=== PATIENT | male | born 1960 | race Caucasian/White ===

== ENCOUNTER 2016-11-11 11:24 | Observation (INO) | payer OTHER ==
[2016-11-11] MEDS ORDERED: ASPIRIN 81 MG CHEW PO STA (11:34)
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
[2016-11-11 12:04] LABS: Partial Thromboplastin Time 24.6 sec (22.0-30.0)
[2016-11-11 12:07] LABS: Basophils # (A) 0.1 k/uL (0-0.2); Basophils % (A) 1 %; CH 30.3; CHCM 33.8; Eosinophils # (A) 0.5 k/uL (0-0.7); Eosinophils % (A) 8 %; HCT 37.7 % (39.0-53.0); HGB 12.4 gm/dL (13.0-17.5); Luc # (Auto) 0.25; Luc % (Auto) 4; Lymphocytes # (A) 1.8 k/uL (1.0-4.8); Lymphocytes % (A) 27 %; MCH 29.7 pg (25.0-35.0); Mean Platelet Volume 6.5; Monocytes # (A) 0.4 k/uL (0-1.0); Monocytes % (A) 6 %; Neutrophils # (A) 3.8 k/uL (1.3-7.7); Neutrophils % (A) 55 %; RBC 4.19 m/uL (4.30-5.90); RDW 14.7 % (11.5-15.5); WBC 6.8 k/uL (3.8-10.6); WBC (Perox) 6.83
[2016-11-11 12:08] LABS: ALT 34 U/L (21-72); AST 31 U/L (17-59); Alkaline Phosphatase 75 U/L (38-126); Anion Gap 10 mmol/L; Blood Urea Nitrogen 11 mg/dL (9-20); Calcium 9.3 mg/dL (8.4-10.2); Carbon Dioxide 25 mmol/L (22-30); Chloride 105 mmol/L (98-107); Glucose 98 mg/dL (74-99); Magnesium 1.8 mg/dL (1.6-2.3); Non-African American GFR(MDRD) >60 (>60 ml/min/1.73 sqM); Potassium 4.5 mmol/L (3.5-5.1); Sodium 140 mmol/L (137-145); Total Bilirubin 0.5 mg/dL (0.2-1.3); Total Protein 6.6 g/dL (6.3-8.2)
--- NOTE | 2016-11-11 13:07 | XR ---
EXAMINATION TYPE: XR chest 2V DATE OF EXAM: 11/11/2016 11:59 AM COMPARISON: 09/22/2016 HISTORY: Shortness of breath TECHNIQUE: Frontal and lateral views of the chest are obtained. FINDINGS: Scattered senescent parenchymal changes noted. Hyperinflation compatible with COPD. No evidence for infiltrate. No evidence for atelectasis. Heart size is stable. Mediastinal structures are stable and grossly unremarkable. No evidence for hilar prominence. Degenerative changes dorsal spine. IMPRESSION: 1. No evidence for acute pulmonary disease.
[2016-11-11] MEDS ORDERED: MORPHINE SULFATE 4 MG/ML SYRINGE IV PRN (13:23)
[2016-11-11] MEDS ORDERED: NALOXONE 0.4 MG/ML 1 ML VIAL IV PRN (13:23)
[2016-11-11] MEDS ORDERED: ONDANSETRON 4 MG/2 ML VIAL IVP PRN (13:23)
[2016-11-11] MEDS ORDERED: ALBUTEROL NEBULIZED 2.5 MG/3 ML INHALATION PRN (13:25)
[2016-11-11] MEDS ORDERED: HEPARIN SODIUM,PORCINE/D5W PMX 25,000 UNIT in DEXTROSE/WATER 1 500ML.BAG IV SCH (15:15)
[2016-11-11] MEDS ORDERED: NITROGLYCERIN SL TABS 0.4 MG TAB SUBLINGUAL PRN (17:26)
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
[2016-11-11] MEDS: IPRATROPIUM-ALBUTEROL 3 ML NEB INHALATION SCH (19:42)
[2016-11-11] MEDS ORDERED: ATORVASTATIN 20 MG TAB PO SCH (21:00)
[2016-11-11] MEDS: GABAPENTIN 300 MG CAP PO SCH (21:08)
[2016-11-11] MEDS: METOPROLOL TARTRATE 25 MG TAB PO SCH (21:08)
[2016-11-11] MEDS: PANTOPRAZOLE 40 MG TABLET PO SCH (21:09)
[2016-11-11] MEDS: LISINOPRIL 10 MG TAB PO SCH (21:09)
[2016-11-11] MEDS: FAMOTIDINE 20 MG TAB PO SCH (21:09)
[2016-11-12] MEDS ORDERED: LEVOTHYROXINE 75 MCG TAB PO SCH (06:30)
[2016-11-12] MEDS ORDERED: ASPIRIN 325 MG TAB PO SCH (09:00)
[2016-11-12] MEDS ORDERED: CITALOPRAM HYDROBROMIDE 20 MG TAB PO SCH (09:00)
[2016-11-12] MEDS: IPRATROPIUM-ALBUTEROL 3 ML NEB INHALATION SCH ×4 (09:22→19:43)
[2016-11-12] MEDS ORDERED: AMINOPHYLLINE 500 MG/20 ML VIAL IV PRN (10:09)
[2016-11-12] MEDS ORDERED: REGADENOSON 0.4 MG/5 ML SYRINGE IV ONE (10:09)
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
[2016-11-12] MEDS: FAMOTIDINE 20 MG TAB PO SCH (13:11)
[2016-11-12] MEDS: PANTOPRAZOLE 40 MG TABLET PO SCH (13:11)
[2016-11-12] MEDS: METOPROLOL TARTRATE 25 MG TAB PO SCH (13:11)
[2016-11-12] MEDS: LISINOPRIL 10 MG TAB PO SCH (13:11)
[2016-11-12] MEDS: GABAPENTIN 300 MG CAP PO SCH (13:11)
--- NOTE | 2016-11-12 13:45 | P.DS ---
Providers Date of admission: 11/11/16 13:23 Attending physician: Aries Ahn Primary care physician: Aries Ahn Discharge summary on 11/12/[address] Francisco Joel [facility]. Final diagnosis: #1 chest pain with the behavioral to left arm with the underlying history of 2 stent considered as unstable angina. #2 patient underwent stress exercise Lexiscan result is pending. #3 COPD chronic bronchitis history of smoking, cessation was of smoking advised, patient currently persistent to smoke and he will not quit at this point. #4 stable troponin and EKG no changes. Hospital course: Patient admitted on observation status because of the chest pain with the repeat cardiac enzyme and EKG, with the consultation with the cardiology Dr. Angelo as well has heparin infusion. His chest pain has been resolved, he is ambulatory, underwent the stress test however farther x-rays will be done. If the results of the test is negative after reviewed by the cardiology patient will be discharged home to follow up with his rail bonder Dr. Clarke. [id number] examination: Patient's conscious alert oriented 3 morning 4 extremities he was eating lunch. HEENT negative except of his left eye prosthesis oropharynx was negative no neck pain or referred pain Chest is clear no rhonchi's no wheezes after he has been used the inhalation therapy with the DuoNeb he has COPD resolved his rhonchi's and the wheezes. Heart regular sinus rhythm no evidence of decompensation. Abdomen soft positive bowel sounds no organ enlargement. Extremities no edema positive pulses bilateral and symmetrical. Neurologically: Stable ambulatory voiding 4 extremities no lateralizing sign. Patient stable general condition. Vital signs stable as well Waiting for the evaluation of the stress test by the rail bonder and patient is free of pain and some sequently will be discharged home. Follow-up with Dr. Ahn 3-5 days. Follow-up with Dr. Clarke and next week. Diet cardiac Activity as tolerated. Advised to stop smoking strongly. Patient Condition at Discharge: Fair Plan - Discharge Summary Discharge Medication List Albuterol Inhaler [Ventolin Hfa Inhaler] 2 puff INHALATION RT-BID PRN 10/01/14 [ History] Citalopram Hydrobromide [CeleXA] 40 mg PO DAILY 10/01/14 [History] Lisinopril [Zestril] 10 mg PO BID 10/01/14 [History] Metoprolol Tartrate [Lopressor] 25 mg PO BID 10/01/14 [History] Nitroglycerin Sl Tabs [Nitrostat] 0.4 mg SUBLINGUAL Q5M PRN 10/01/14 [History] Omeprazole [PriLOSEC] 20 mg PO BID 10/01/14 [History] Simvastatin [Zocor] 40 mg PO HS 10/01/14 [History] Gabapentin [Neurontin] 300 mg PO BID 05/25/15 [History] Aspirin 325 mg PO DAILY 03/20/16 [History] Levothyroxine Sodium [Synthroid] 75 mcg PO DAILY 11/11/16 [History] Metoclopramide [Reglan] 5 mg PO TID 11/11/16 [History] Follow up Appointment(s)/Referral(s): Aries Ahn MD [Primary Care Provider] - 1-2 days
--- NOTE | 2016-11-12 13:52 | ECHOS ---
DATE OF SERVICE: 11/12/16 AGE: 56Y SEX: M HT: 72" WT: 180 lbs. Protocol Marvin: Others: Stage: Dur. of Exercise: *Heart Rate Blood Pressure *Rest: 62 Rest: 126/70 * *Max. Achieved: 92 Maximum BP: 133/86 85% PMHR: 138 100% PMHR: 162 *METS: INDICATIONS: Chest pain. MEDICATIONS: See list. CLINICAL INFORMATION: History of chest pain, hypertension, and TIA, family history of coronary artery disease, palpitations, history of smoking half pack of cigarettes a day for over 45 years. Resting ECG shows sinus rhythm, rate of 62 beats per minute, ( ) 0.16, QRS 0.08, normal ST-T waves. Utilizing a standard Lexiscan protocol, Lexiscan was given IV push followed by serial EKGs. The patient did not develop any chest pain or pressure or ST segment deviations indicative of ischemia in any of the monitoring 12 leads. Patient tolerated the procedure very well. IMPRESSION: 1. Baseline rhythm is sinus with normal ( ). Normal ST-T waves. 2. Negative Lexiscan Cardiolite study. 3. Nuclear scintigrams to follow from radiology department.
--- NOTE | 2016-11-12 15:16 | NM ---
EXAMINATION TYPE: NM stress lexiscan cardiolite DATE OF EXAM: 11/12/2016 3:02 PM COMPARISON: Chest x-ray October HISTORY: Chest pain TECHNIQUE: After the intravenous administration of 10.36 mCi Tc 99m Sestamibi - Cardiolite resting S PECT images acquired 30 minutes post injection. The patient received 0.4mg Lexiscan, 27.3 mCi Tc 99m Sestamibi - Stress images obtained 100 minutes p ost injection FINDINGS: Review of stress and rest SPECT images demonstrates decreased perfusion along the inferior wall the l eft ventricular myocardium on stress and rest images. Gated analysis shows normal wall motion with an estimated left ventricular ejection fraction of 43 %. No evident pharmacologically induced reversibl e ischemia. IMPRESSION: No scintigraphic evidence for reversible ischemia. Findings may represent previous infarct along the inferior wall of the left vertebral myocardium.
[2016-11-12 15:51] VITALS: BP 128/78; RESP 16; TEMP 97.8
[2016-11-12 16:11] VITALS: PULSE 60
== END 2016-11-12 19:15 | disposition home or self-care (01) ==
LOC: EC 11:24 → 3OBS 13:23
PROVIDERS: ADMIT Internal Medicine; ATTEND Internal Medicine
DX: R07.89 Other chest pain (principal); J44.9 Chronic obstructive pulmonary disease, unspecified; F17.200 Nicotine dependence, unspecified, uncomplicated; E03.9 Hypothyroidism, unspecified; I25.10 Atherosclerotic heart disease of native coronary artery without angina pectoris; K21.9 Gastro-esophageal reflux disease without esophagitis; E55.9 Vitamin D deficiency, unspecified; E78.5 Hyperlipidemia, unspecified; J45.909 Unspecified asthma, uncomplicated; I50.9 Heart failure, unspecified; I10 Essential (primary) hypertension; M54.9 Dorsalgia, unspecified; I25.2 Old myocardial infarction; M19.90 Unspecified osteoarthritis, unspecified site; F41.9 Anxiety disorder, unspecified; F32.9 Major depressive disorder, single episode, unspecified; Z95.5 Presence of coronary angioplasty implant and graft; Z97.0 Presence of artificial eye; Z79.82 Long term (current) use of aspirin; Z88.5 Allergy status to narcotic agent; Z88.8 Allergy status to other drugs, medicaments and biological substances; Z82.49 Family history of ischemic heart disease and other diseases of the circulatory system; Z80.1 Family history of malignant neoplasm of trachea, bronchus and lung
CPT/HCPCS: 36415; 94640 ×3; 93005; 93017; 83880; 80053; 83735; 84484; 85025; 85610; 85730 ×2; 71020; 78452; 99285; 96365; G0378 ×2; A9500; J1644; J2785; 96366

== ENCOUNTER 2016-12-10 09:43 | Day surgery (SDC) | payer OTHER ==
[2016-12-08 08:45] VITALS: BMI 27.1
[~2016-12-10 09:43] MED LIST: ALPRAZolam 0.25 MG TAB PO PRN; ALPRAZolam 0.5 MG TAB PO PRN; ASPIRIN 325 MG TAB PO STA; ATORVASTATIN 80 MG TAB PO STA; NITROGLYCERIN SL TABS 0.4 MG TAB SUBLINGUAL PRN; SODIUM CHLORIDE 0.9% 1,000 ML in EMPTY BAG 1 BAG IV ONE
[2016-12-10 10:12] VITALS: RESP 18
[2016-12-10] MEDS ORDERED: MIDAZOLAM 2 MG/2 ML VIAL IV ONE ×2 (10:45→10:55)
[2016-12-10] MEDS ORDERED: LIDOCAINE 2% INJ 20 MG/ML SQ ONE (10:49)
[2016-12-10] MEDS: VERAPAMIL SYRINGE (5 MG/10 ML) IV ONE ×2 (10:52→11:12)
[2016-12-10] MEDS ORDERED: IOHEXOL 350 MG/ML 100 ML BOTTLE INJ ONE (11:12)
[2016-12-10] MEDS ORDERED: RX INFO: IV CONTRAST WAS GIVEN 1 EACH MISC MISCELLANE PRN (11:19)
[2016-12-10] MEDS ORDERED: SODIUM CHLORIDE 0.9% 1,000 ML IV SCH (11:30)
[2016-12-10 12:04] VITALS: PULSE 52
[2016-12-10 12:59] VITALS: TEMP 98
[2016-12-10] MEDS ORDERED: ACETAMINOPHEN TAB 325 MG TAB PO PRN (13:42)
[2016-12-10 14:45] VITALS: BP 139/94
--- NOTE | 2016-12-10 20:34 | LTR ---
December 10, 2016 RE: Myles Sow Dear Dr. Ahn, Mr. Myles Sow underwent heart catheterization which showed intermediate triple-vessel coronary artery disease. Maximized medical treatment is recommended; no need for stent at this point. Thank you for allowing me to participate in his care. Sincerely, LADONNA MC MD
--- NOTE | 2016-12-10 20:39 | CC ---
DATE OF SERVICE: 12/10/2016 PERFORMING PHYSICIAN: Adrian Gao M.D. cat sitter. PROCEDURE PERFORMED: Selective right and left coronary angiogram. INDICATION FOR STUDY: This is a pleasant 56-year-old gentleman who was experiencing chest discomfort in spite of maximized medical treatment. APPROACH: Right radial artery. COMPLICATIONS: None. LEVEL OF SEDATION: Moderate. PROCEDURE DESCRIPTION: After obtaining informed consent, the patient was brought to the cardiac laborer demolition. The right radial artery was cannulated using micropuncture technique. The micropuncture wire passed easily, then I placed a 6 Dominican sheath in the right radial artery. I performed selective right and left angiogram. After that I gave the patient 2 mg of Verapamil IA and 3000 units of heparin IV. I did selective right and left coronary angiogram using JR4 and JL3.5 catheters. The procedure was completed without any complication. SELECTIVE CORONARY ANGIOGRAM: 1. The right coronary artery is a large-caliber vessel. It is a dominant vessel. The RCA has intermediate disease in the mid portion that appeared to be in the range of 50%. 2. The left main is a short left main but is angiographically normal. It bifurcates into the left circumflex and left anterior descending artery. 3. Left circumflex. The proximal circumflex appeared to have disease in the range of 30%. The mid left circumflex has a lesion that seems to be in the range of 50% by the bifurcation of the first OM branch, which appeared to be angiographically normal. The left circumflex after that appeared to be angiographically normal and gives rises to the second OM branch, which appeared to be angiographically normal. 4. Left anterior descending artery. The proximal LAD appeared to be angiographically normal. The mid LAD by the bifurcation of the first diagonal had a lesion that appeared to be in the range of 30%. The first diagonal appeared to be a small- to medium-caliber vessel with lesion in the proximal portion in the range of 70%. The LAD distally is angiographically normal. CONCLUSION: 1. Intermediate triple-vessel coronary artery disease. 2. Severe disease involving a proximal first diagonal branch which is a small- to medium-caliber vessel which is about a 2 mm vessel. POST-PROCEDURE MANAGEMENT: 1. Maximize medical treatment. 2. Follow up with the patient.
== END 2016-12-10 15:52 | disposition home or self-care (01) ==
LOC: CATHCVL 09:43
PROVIDERS: ATTEND Internal Medicine Interventional Cardiology
DX: I25.110 Atherosclerotic heart disease of native coronary artery with unstable angina pectoris (principal); I10 Essential (primary) hypertension; J44.9 Chronic obstructive pulmonary disease, unspecified; E03.9 Hypothyroidism, unspecified; E78.00 Pure hypercholesterolemia, unspecified; I25.2 Old myocardial infarction; F17.210 Nicotine dependence, cigarettes, uncomplicated; Z88.5 Allergy status to narcotic agent; Z91.041 Radiographic dye allergy status; Z79.82 Long term (current) use of aspirin; Z79.899 Other long term (current) drug therapy; Z95.5 Presence of coronary angioplasty implant and graft; Z82.49 Family history of ischemic heart disease and other diseases of the circulatory system
CPT/HCPCS: 93454; 99152; 99153; C1894; J2001; J2250; Q9967; J1644

== ENCOUNTER → 2017-04-11 | Outpatient (CLI) | payer OTHER ==
[2017-04-11 12:20] LABS: Basophils % (A) 1 %; CHCM 33.3; Eosinophils # (A) 0.4 k/uL (0-0.7); Eosinophils % (A) 6 %; HCT 36.1 % (39.0-53.0); HGB 11.9 gm/dL (13.0-17.5); Luc # (Auto) 0.18; Luc % (Auto) 3; Lymphocytes # (A) 1.5 k/uL (1.0-4.8); Lymphocytes % (A) 25 %; MCH 30.8 pg (25.0-35.0); MCV 93.5 fL (80.0-100.0); Mean Platelet Volume 7.4; Monocytes # (A) 0.4 k/uL (0-1.0); Monocytes % (A) 7 %; Neutrophils # (A) 3.6 k/uL (1.3-7.7); Neutrophils % (A) 59 %; RBC 3.87 m/uL (4.30-5.90); RDW 14.2 % (11.5-15.5); WBC (Perox) 6.16
[2017-04-11 12:58] LABS: Anion Gap 8 mmol/L; Blood Urea Nitrogen 14 mg/dL (9-20); Calcium 9.2 mg/dL (8.4-10.2); Carbon Dioxide 25 mmol/L (22-30); Chloride 105 mmol/L (98-107); Glucose 97 mg/dL (74-99); Non-African American GFR(MDRD) >60 (>60 ml/min/1.73 sqM); Potassium 4.4 mmol/L (3.5-5.1); Sodium 138 mmol/L (137-145); Uric Acid 4.3 mg/dL (3.5-8.5)
[2017-04-11 14:35] LABS: Erythrocyte Sedimentation Rate 25 mm/hr (0-15)
--- NOTE | 2017-04-11 15:39 | XR ---
EXAMINATION TYPE: XR Hip Bilateral Complete DATE OF EXAM ORDERED: 04/11/2017 HISTORY: M51.87 degenerative disease. COMPARISON: None. FINDINGS: There are mild degenerative changes in both hips. No fracture, dislocation or other acute osseous lesion is seen. There are phleboliths within the pelvis. IMPRESSION: 1. NO ACUTE OSSEOUS LESION. 2. MILD DEGENERATIVE CHANGE.
--- NOTE | 2017-04-11 15:40 | XR ---
EXAMINATION TYPE: XR thoracic spine complete DATE OF EXAM ORDERED: 04/11/2017 HISTORY: M51.36 degenerative disc disease. COMPARISON: None. FINDINGS: The upper thoracic spine is not well seen in the lateral projection. Vertebral body height and alignment are maintained. No fractures are seen. There is hypertrophic spon dylosis in the lower dorsal spine. There is fairly marked hypertrophic spondylosis in the mid to lowe r cervical spine. Paraspinal soft tissues are normal. The pedicles are intact. IMPRESSION: 1. NO ACUTE OSSEOUS LESIONS. 2. MILD DEGENERATIVE CHANGE IN THE THORACIC SPINE AND MORE SEVERE DEGENERATIVE CHANGE IN THE CERVICAL SPINE.
--- NOTE | 2017-04-11 15:40 | XR ---
EXAMINATION TYPE: XR knee complete bilateral DATE OF EXAM ORDERED: 04/11/2017 HISTORY: effusion. COMPARISON: None. FINDINGS: Joint spaces are maintained. There is no chondrocalcinosis. No acute fracture or dislocati on is seen. There is fullness in the suprapatellar regions bilaterally. I cannot exclude joint effusi ons. IMPRESSION: 1. NO ACUTE OSSEOUS LESION. 2. I CANNOT EXCLUDE BILATERAL JOINT EFFUSIONS.
--- NOTE | 2017-04-11 15:42 | XR ---
EXAM TYPE: LUMBAR SPINE X RAY SERIES COMPARISON: NONE HISTORY: Pain TECHNIQUE: 4 views are submitted. FINDINGS: Alignment is anatomic. The pedicles are intact. The transverse processes are intact. Hypertrophic and degenerative change of the spine seen with severe degenerative disc disease and facet arthropathy L5-S1. Foraminal encroachment suggested. Based on positioning could not exclude a spondylolysis of L 1 on the right. IMPRESSION: 1. Multilevel degenerative disc disease with severe changes at L5-S1. Correlate with MRI.
== END | disposition home or self-care (01) ==
LOC: LABWHC1 11:56
PROVIDERS: ATTEND Internal Medicine
DX: M25.469 Effusion, unspecified knee (principal); M16.0 Bilateral primary osteoarthritis of hip; M47.814 Spondylosis without myelopathy or radiculopathy, thoracic region; M51.37 Other intervertebral disc degeneration, lumbosacral region
CPT/HCPCS: 36415; 72072; 72110; 73521; 80048; 84550; 85025; 85652

== ENCOUNTER → 2017-07-16 | Outpatient (CLI) | payer OTHER ==
[2017-07-16 13:08] LABS: Basophils % (A) 1 %; Eosinophils # (A) 0.4 k/uL (0-0.7); Eosinophils % (A) 6 %; HCT 41.1 % (39.0-53.0); HDW 2.23; HGB 13.2 gm/dL (13.0-17.5); Luc # (Auto) 0.15; Luc % (Auto) 2; Lymphocytes # (A) 2.2 k/uL (1.0-4.8); Lymphocytes % (A) 35 %; MCH 30.2 pg (25.0-35.0); MCV 94.3 fL (80.0-100.0); Mean Platelet Volume 7.7; Monocytes # (A) 0.4 k/uL (0-1.0); Monocytes % (A) 6 %; Neutrophils # (A) 3.2 k/uL (1.3-7.7); Neutrophils % (A) 50 %; RBC 4.36 m/uL (4.30-5.90); WBC 6.3 k/uL (3.8-10.6); WBC (Perox) 6.73
[2017-07-16 13:35] LABS: ALT 40 U/L (21-72); AST 27 U/L (17-59); Alkaline Phosphatase 85 U/L (38-126); Blood Urea Nitrogen 9 mg/dL (9-20); C Reactive Protein <5.0 mg/L (<10.0); Calcium 9.4 mg/dL (8.4-10.2); Carbon Dioxide 26 mmol/L (22-30); Cholesterol 135 mg/dL (<200); Creatine Kinase 47 U/L (55-170); Glucose 94 mg/dL (74-99); HDL Cholesterol 76 mg/dL (40-60); Non-African American GFR(MDRD) >60 (>60 ml/min/1.73 sqM); Potassium 4.3 mmol/L (3.5-5.1); Sodium 138 mmol/L (137-145); Total Bilirubin 0.5 mg/dL (0.2-1.3); Total Protein 6.6 g/dL (6.3-8.2)
[2017-07-16 13:37] LABS: Anion Gap 8 mmol/L; Chloride 104 mmol/L (98-107)
[2017-07-16 14:03] LABS: Erythrocyte Sedimentation Rate 12 mm/hr (0-15); Prostate Specific Antigen 0.42 ng/mL (0.00-4.00)
[2017-07-16 14:21] LABS: Vitamin B12 400 pg/mL (239-931)
== END | disposition home or self-care (01) ==
LOC: LABWHC1 12:41
PROVIDERS: ATTEND Internal Medicine
DX: Z00.00 Encounter for general adult medical examination without abnormal findings (principal); N40.0 Benign prostatic hyperplasia without lower urinary tract symptoms; E78.5 Hyperlipidemia, unspecified; I10 Essential (primary) hypertension; E55.9 Vitamin D deficiency, unspecified; I25.10 Atherosclerotic heart disease of native coronary artery without angina pectoris
CPT/HCPCS: 36415; 80053; 80061; 82306; 82550; 82607; 84153; 85025; 85652; 86140

== ENCOUNTER → 2018-03-03 | Outpatient (CLI) | payer OTHER ==
--- NOTE | 2018-03-03 11:32 | XR ---
EXAMINATION TYPE: XR knee complete bilateral DATE OF EXAM: 03/03/2018 COMPARISON: NONE HISTORY: Pain TECHNIQUE: 3 views are submitted bilaterally. FINDINGS: Soft tissue ossification adjacent to the medial femoral condyle. Mild narrowing of the medial compart ment of the knee joint and patellofemoral joint bilaterally with tiny spurs. Suprapatellar bursal flu id collections are noted bilaterally. Osseous structures are intact. No acute fracture seen. IMPRESSION: 1. No acute fracture or dislocation. 2. Bilateral suprapatellar bursal fluid collections with evidence of osteoarthritis. Correlate with M RI as clinically warranted.
[2018-03-03 18:13] LABS: Rheumatoid Factor <4 IU/mL (0-15)
[2018-03-03 19:26] LABS: Anti-DNA, DS unit <1.0 IU/mL; DNA Double-Stranded NEGATIVE (NEGATIVE)
[2018-03-06 11:28] LABS: ANA Pattern See Footnote
== END | disposition home or self-care (01) ==
LOC: LABWHC1 10:49
PROVIDERS: ATTEND Internal Medicine
DX: M25.462 Effusion, left knee (principal); M25.461 Effusion, right knee; R26.2 Difficulty in walking, not elsewhere classified; M35.9 Systemic involvement of connective tissue, unspecified; M17.0 Bilateral primary osteoarthritis of knee
CPT/HCPCS: 36415; 85652; 86038; 86039; 86140; 86225; 86431

== ENCOUNTER → 2018-06-28 | Outpatient (CLI) | payer OTHER ==
[2018-06-28 09:45] LABS: HCT 42.2 % (39.0-53.0); HGB 13.4 gm/dL (13.0-17.5); MCH 29.9 pg (25.0-35.0); MCHC 31.8 g/dL (31.0-37.0); MCV 93.9 fL (80.0-100.0); Mean Platelet Volume 6.6; Platelet Count 250 k/uL (150-450); RDW 14.6 % (11.5-15.5); WBC 8.1 k/uL (3.8-10.6)
[2018-06-28 09:58] LABS: Anion Gap 8 mmol/L; Blood Urea Nitrogen 18 mg/dL (9-20); Carbon Dioxide 29 mmol/L (22-30); Chloride 103 mmol/L (98-107); Potassium 4.4 mmol/L (3.5-5.1); Sodium 140 mmol/L (137-145)
== END | disposition home or self-care (01) ==
LOC: LABPAT 08:23
PROVIDERS: ATTEND Internal Medicine Interventional Cardiology
DX: Z01.812 Encounter for preprocedural laboratory examination (principal); R06.02 Shortness of breath; R07.9 Chest pain, unspecified; E78.1 Pure hyperglyceridemia
CPT/HCPCS: 36415; 80051; 82565; 84520; 85027

== ENCOUNTER 2018-07-12 12:04 | Day surgery (SDC) | payer OTHER ==
[2018-07-12] MEDS ORDERED: ASPIRIN 325 MG TAB PO STA (14:51)
[2018-07-12] MEDS ORDERED: ATORVASTATIN 80 MG TAB PO STA (14:52)
[2018-07-12 17:36] VITALS: BMI 26.4
[2018-07-12] MEDS ORDERED: diphenhydrAMINE 25 MG CAP PO SCH (18:00)
[2018-07-12] MEDS ORDERED: ALBUTEROL NEBULIZED 2.5 MG/3 ML INHALATION PRN (18:26)
[2018-07-12] MEDS: diphenhydrAMINE 25 MG CAP PO SCH (18:28)
[2018-07-12] MEDS: FAMOTIDINE 20 MG TAB PO SCH (18:28)
[2018-07-12] MEDS: GABAPENTIN 300 MG CAP PO SCH (19:55)
[2018-07-12] MEDS: METOPROLOL TARTRATE 25 MG TAB PO SCH (19:55)
[2018-07-12] MEDS: ATORVASTATIN 20 MG TAB PO SCH (19:55)
[2018-07-13] MEDS: CITALOPRAM HYDROBROMIDE 20 MG TAB PO SCH (06:52)
[2018-07-13] MEDS: diphenhydrAMINE 25 MG CAP PO SCH ×2 (06:52→20:42)
[2018-07-13] MEDS: METOPROLOL TARTRATE 25 MG TAB PO SCH ×2 (06:53→20:40)
[2018-07-13] MEDS: CHOLECALCIFEROL 1,000 UNIT TAB PO SCH (06:53)
[2018-07-13] MEDS: LEVOTHYROXINE 75 MCG TAB PO SCH (06:53)
[2018-07-13] MEDS: LOSARTAN 50 MG TAB PO SCH (06:53)
[2018-07-13] MEDS: FAMOTIDINE 20 MG TAB PO SCH ×2 (06:53→20:40)
[2018-07-13] MEDS: GABAPENTIN 300 MG CAP PO SCH ×3 (06:53→20:40)
[2018-07-13] MEDS: ATORVASTATIN 20 MG TAB PO SCH (06:54)
[2018-07-13] MEDS ORDERED: VERAPAMIL 2.5 MG/ML 2 ML AMP ONE (07:35)
[2018-07-13] MEDS ORDERED: LIDOCAINE 1% INJ 10MG/ML (20 ML MDV) ONE (07:36)
[2018-07-13] MEDS ORDERED: MIDAZOLAM 2 MG/2 ML VIAL ONE (07:55)
[2018-07-13] MEDS ORDERED: IV FLUID CONTINUATION 1,000 ML IV ONE (07:58)
[2018-07-13] MEDS ORDERED: HEPARIN SODIUM 1,000 UN/ML (10ML VL) ONE (08:07)
[2018-07-13] MEDS ORDERED: MIDAZOLAM 2 MG/2 ML VIAL IV ONE (08:08)
[2018-07-13] MEDS ORDERED: LIDOCAINE 1% INJ 10MG/ML (20 ML MDV) SQ ONE (08:16)
[2018-07-13] MEDS ORDERED: VERAPAMIL SYRINGE (5 MG/10 ML) INTRAARTER ONE (08:18)
[2018-07-13] MEDS ORDERED: fentaNYL (PF) 50 MCG/ML 2 ML AMP ONE (08:34)
[2018-07-13] MEDS ORDERED: CLOPIDOGREL 75 MG TAB ONE (08:34)
[2018-07-13] MEDS ORDERED: fentaNYL (PF) 50 MCG/ML 2 ML AMP IV ONE (08:40)
[2018-07-13] MEDS ORDERED: BIVALIRUDIN BOLUS 250 MG/50 ML IV ONE (08:42)
[2018-07-13] MEDS ORDERED: BIVALIRUDIN 250 MG in SODIUM CHLORIDE 0.9% 50 ML IV ONE (08:44)
[2018-07-13] MEDS ORDERED: CLOPIDOGREL 75 MG TAB PO ONE (08:46)
[2018-07-13] MEDS ORDERED: IOPAMIDOL-370 125ML BTL INJ ONE (08:48)
[2018-07-13] MEDS ORDERED: ASPIRIN-ACET-CAFF 250-250-65MG 1 EACH TAB PO PRN (08:51)
[2018-07-13] MEDS ORDERED: NITROGLYCERIN SL TABS 0.4 MG TAB SUBLINGUAL PRN (08:52)
[2018-07-13] MEDS ORDERED: MAG HYDROX/AL HYDROX/SIMETH 30 ML CUP PO PRN (08:52)
[2018-07-13] MEDS ORDERED: RX INFO: IV CONTRAST WAS GIVEN 1 EACH MISC MISCELLANE PRN (08:52)
[2018-07-13] MEDS ORDERED: ATROPINE SULFATE 0.1 MG/ML 10ML SYRINGE IV PRN (08:52)
[2018-07-13] MEDS ORDERED: ZOLPIDEM 5 MG TAB PO PRN (08:52)
[2018-07-13] MEDS ORDERED: SODIUM CHLORIDE 0.9% 1,000 ML IV SCH (09:00)
[2018-07-13] MEDS ORDERED: MAG HYDROX/AL HYDROX/SIMETH 30 ML CUP ONE (09:12)
[2018-07-13] MEDS ORDERED: MAG HYDROX/AL HYDROX/SIMETH 30 ML CUP PO ONE (09:21)
--- NOTE | 2018-07-13 09:24 | LTR ---
July 13, 2018 Re: Myles Sow Dear Dr. Ahn: Mr. Myles Sow underwent a heart catheterization today and that revealed severe disease involving the left circumflex which is stented with good angiographic results and without any complication. Thank you for allowing me to participate in his care and please do not hesitate to call if you have any question or concern. Sincerely, MD LIZZIE Sheets / AYESHAN: [id number] /
--- NOTE | 2018-07-13 09:39 | CC ---
CARDIAC CATHETERIZATION REPORT DATE OF SERVICE: July 13, 2018 PERFORMING PHYSICIAN: Adrian Gao MD. PROCEDURE PERFORMED: 1. Selective right and left coronary angiogram. 2. Left heart catheterization. 3. Successful stenting of the ostial/proximal left circumflex using 3.0 x 15 mm Xience JOAN with good angiographic result and reduction of stenosis from 70% to 0%. INDICATION: This is a pleasant 58-year-old gentleman with known history of coronary artery disease and prior stenting of the RCA and left circumflex in the past as well as significant history of smoking was seen in the office recently complaining of chest discomfort concerning for angina. He has been utilizing more nitroglycerin sublingual. Because of that, a heart catheterization was advised. APPROACH: Right radial artery. COMPLICATION: None. LEVEL OF SEDATION: Moderate with sedation length of 33 minutes. PROCEDURE DESCRIPTION: After obtaining an informed consent, the patient was brought to cardiac laborer egg producing farm. The right radial artery was cannulated using micropuncture technique, the micropuncture wire passed easily then I placed a 6-Upper Sorbian sheath in the right radial artery. After that, I did selective right and left coronary angiogram using JR4 and JL3.5 catheters. Left heart catheterization was performed using the JR4 catheter which flipped into the LV then I did pullback across the aortic valve. After that I did intervene on the left circumflex. Please see a separate paragraph for that. SELECTIVE CORONARY ANGIOGRAM: 1. The RCA is a large caliber vessel and it is a dominant vessel. The RCA is stented in the midportion and the stent is patent. 2. The left main is angiographically normal and a short left main. It bifurcates into the left circumflex and left anterior descending artery. 3. Left circumflex is a large caliber vessel and it is a nondominant vessel. The ostial circumflex appeared to have a tight lesion in the range of 70%. The mid left circumflex seems to be stented and the stent is patent. The left circumflex distally appeared to be angiographically normal. 4. The LAD: The proximal LAD is angiographically normal. The mid LAD by the bifurcation of a diagonal appeared to have a lesion in the range of 20% to 30%. The diagonal branch of the LAD is a medium caliber vessel with lesion about 50%. The LAD distally appeared to be angiographically normal. HEMODYNAMICS: The left ventricular end-diastolic pressure was 16 mmHg and no gradient was identified across the aortic valve. PCI OF THE LEFT CIRCUMFLEX: Anticoagulation was initiated using Angiomax. Subsequently took a JL3 guide and the left main was engaged. A whisper wire was used to wire the left circumflex. I did direct stenting on the lesion in the left circumflex using a 3.0 x 15 mm Xience JOAN where the stent was positioned under fluoroscopic guidance and deployed under 12 atmospheres for 20 seconds. The following angiogram showed good angiographic results with reduction of stenosis from 70% to 0% without any pinch on the left main or LAD. CONCLUSION: 1. Patent stent in the mid right coronary artery. 2. Severe disease involving the ostial/proximal left circumflex. Patent stent in the mid left circumflex. 3. Mild disease involving the left anterior descending artery. 4. Successful stenting of the ostial/proximal left circumflex using 3.0 x 15 mm Xience JOAN with good angiographic results. POSTPROCEDURE MANAGEMENT: 1. Dual antiplatelet therapy. 2. Risk factor modifications. 3. Follow up with the patient. MMODL / IJN: [id number] /
[2018-07-13] MEDS ORDERED: ACETAMINOPHEN TAB 325 MG TAB PO STA (11:28)
[2018-07-13 12:33] VITALS: RESP 16
[2018-07-13] MEDS: ASPIRIN 325 MG TAB PO SCH (12:59)
[2018-07-13] MEDS: predniSONE 20 MG TAB PO SCH (18:04)
[2018-07-14] MEDS: LEVOTHYROXINE 75 MCG TAB PO SCH (06:07)
[2018-07-14 06:47] LABS: Basophils % (A) 0 %; Eosinophils % (A) 0 %; HCT 41.2 % (39.0-53.0); HGB 13.9 gm/dL (13.0-17.5); Lymphocytes % (A) 13 %; MCH 30.7 pg (25.0-35.0); MCHC 33.8 g/dL (31.0-37.0); Mean Platelet Volume 7.2; Monocytes # (A) 0.2 k/uL (0-1.0); Monocytes % (A) 3 %; Neutrophils # (A) 6.5 k/uL (1.3-7.7); Neutrophils % (A) 83 %; Platelet Count 252 k/uL (150-450); RBC 4.52 m/uL (4.30-5.90); RDW 13.8 % (11.5-15.5); WBC 7.8 k/uL (3.8-10.6)
[2018-07-14 07:03] LABS: Anion Gap 9 mmol/L; Blood Urea Nitrogen 16 mg/dL (9-20); Calcium 9.4 mg/dL (8.4-10.2); Carbon Dioxide 25 mmol/L (22-30); Chloride 103 mmol/L (98-107); Glucose 105 mg/dL (74-99); Potassium 4.8 mmol/L (3.5-5.1); Sodium 137 mmol/L (137-145)
[2018-07-14 07:29] VITALS: BP 140/97; PULSE 73; TEMP 98
[2018-07-14] MEDS: FAMOTIDINE 20 MG TAB PO SCH (07:30)
[2018-07-14] MEDS: LOSARTAN 50 MG TAB PO SCH (07:30)
[2018-07-14] MEDS: METOPROLOL TARTRATE 25 MG TAB PO SCH (07:30)
[2018-07-14] MEDS: ASPIRIN 325 MG TAB PO SCH (07:30)
[2018-07-14] MEDS: predniSONE 20 MG TAB PO SCH (07:31)
[2018-07-14] MEDS: CHOLECALCIFEROL 1,000 UNIT TAB PO SCH (07:31)
[2018-07-14] MEDS: CITALOPRAM HYDROBROMIDE 20 MG TAB PO SCH (07:32)
[2018-07-14] MEDS: GABAPENTIN 300 MG CAP PO SCH (07:33)
[2018-07-14] MEDS: diphenhydrAMINE 25 MG CAP PO SCH (07:36)
[2018-07-14] MEDS ORDERED: CLOPIDOGREL 75 MG TAB PO SCH (09:00)
--- NOTE | 2018-07-17 00:57 | DS ---
DISCHARGE SUMMARY ADMISSION DATE: 07/13/2018. DISCHARGE DATE: 07/14/2018. BRIEF HISTORY: This is a very pleasant 58-year-old gentleman with known history of coronary artery disease who was experiencing symptoms of chest discomfort concerning for angina. Because of that, a heart catheterization was advised. The patient underwent heart catheterization and was found to have critical disease involving the ostial/proximal left circumflex. He underwent successful stenting of the left circumflex with good angiographic results and without any complication. The patient is going to be discharged home on dual anti-platelet therapy and I will follow up with the patient next week in the office. MMODL / IJN: [id number] /
== END 2018-07-14 10:27 | disposition home or self-care (01) ==
LOC: CATHCVL 12:04 → 5MS5E 16:37 → 3OBS 17:23 → 6SEL 07-13 09:04 → CATHCVL 07-14 10:27
PROVIDERS: ATTEND Internal Medicine Interventional Cardiology
DX: I25.10 Atherosclerotic heart disease of native coronary artery without angina pectoris (principal); I10 Essential (primary) hypertension; E78.5 Hyperlipidemia, unspecified; F17.210 Nicotine dependence, cigarettes, uncomplicated; Z88.5 Allergy status to narcotic agent; Z91.048 Other nonmedicinal substance allergy status; E78.00 Pure hypercholesterolemia, unspecified; I25.2 Old myocardial infarction; Z95.5 Presence of coronary angioplasty implant and graft; Z79.82 Long term (current) use of aspirin; Z79.899 Other long term (current) drug therapy
CPT/HCPCS: 93458; 80048; 85025; C9600; C1769 ×2; C1887; C1874; C1894; J2250; J2001; J3010; J0583; J1644; J7512 ×2; Q9967

== ENCOUNTER → 2018-08-09 | Outpatient (CLI) | payer OTHER ==
[2018-08-09 09:23] LABS: Basophils # (A) 0.1 k/uL (0-0.2); Basophils % (A) 1 %; Eosinophils # (A) 0.4 k/uL (0-0.7); Eosinophils % (A) 6 %; HCT 38.1 % (39.0-53.0); HGB 12.1 gm/dL (13.0-17.5); Lymphocytes # (A) 1.9 k/uL (1.0-4.8); Lymphocytes % (A) 31 %; MCH 30.2 pg (25.0-35.0); MCHC 31.8 g/dL (31.0-37.0); MCV 94.9 fL (80.0-100.0); Mean Platelet Volume 7.1; Monocytes # (A) 0.4 k/uL (0-1.0); Monocytes % (A) 6 %; Neutrophils # (A) 3.3 k/uL (1.3-7.7); Neutrophils % (A) 53 %; Platelet Count 312 k/uL (150-450); RBC 4.01 m/uL (4.30-5.90); RDW 13.8 % (11.5-15.5); WBC 6.3 k/uL (3.8-10.6)
[2018-08-09 10:28] LABS: Erythrocyte Sedimentation Rate 20 mm/hr (0-15)
[2018-08-09 10:57] LABS: ALT 34 U/L (21-72); AST 26 U/L (17-59); Albumin 3.9 g/dL (3.5-5.0); Alkaline Phosphatase 73 U/L (38-126); Anion Gap 8 mmol/L; Blood Urea Nitrogen 19 mg/dL (9-20); C Reactive Protein <5.0 mg/L (<10.0); Calcium 9.2 mg/dL (8.4-10.2); Carbon Dioxide 25 mmol/L (22-30); Chloride 106 mmol/L (98-107); Cholesterol 176 mg/dL (<200); Creatine Kinase 46 U/L (55-170); Glucose 99 mg/dL (74-99); HDL Cholesterol 57 mg/dL (40-60); LDL Cholesterol,Calculated 96 mg/dL (0-99); Potassium 4.5 mmol/L (3.5-5.1); Sodium 139 mmol/L (137-145); Total Bilirubin 0.4 mg/dL (0.2-1.3); Total Protein 6.8 g/dL (6.3-8.2); Triglycerides 115 mg/dL (<150)
[2018-08-09 11:24] LABS: Prostate Specific Antigen 0.59 ng/mL (0.00-4.00)
[2018-08-09 17:06] LABS: Vitamin D 25 Hydroxy 33.6 ng/mL (30.0-100.0)
[2018-08-09 18:44] LABS: Anti-DNA, DS unit <1.0 IU/mL; DNA Double-Stranded NEGATIVE (NEGATIVE)
[2018-08-09 19:36] LABS: Hemoglobin A1C 5.9 % (4.0-6.0)
[2018-08-09 23:08] LABS: T4, Free (Free Thyroxine) 0.84 ng/dL (0.78-2.19)
[2018-08-10 08:46] LABS: ANA Pattern See Footnote
[2018-08-10 14:41] LABS: C-ANCA <1:20 Titer (<1:20); P-ANCA <1:20 Titer (<1:20)
== END | disposition home or self-care (01) ==
LOC: LABWHC1 08:19
PROVIDERS: ATTEND Internal Medicine
DX: E78.5 Hyperlipidemia, unspecified (principal); E55.9 Vitamin D deficiency, unspecified; D64.9 Anemia, unspecified; N40.0 Benign prostatic hyperplasia without lower urinary tract symptoms; I50.9 Heart failure, unspecified; I25.10 Atherosclerotic heart disease of native coronary artery without angina pectoris; M35.9 Systemic involvement of connective tissue, unspecified; R07.9 Chest pain, unspecified
CPT/HCPCS: 36415; 80053; 80061; 82306; 82550; 83036; 84153; 84439; 84443; 85025; 85652; 86038; 86039; 86140; 86225; 86235; 86255

== ENCOUNTER → 2018-09-26 | Outpatient (CLI) | payer OTHER ==
--- NOTE | 2018-09-26 10:00 | US ---
EXAMINATION TYPE: US carotid duplex BILAT DATE OF EXAM: 09/26/2018 COMPARISON: CT Brain, US CLINICAL HISTORY: I25.10 Cardiovascular disease. CAD; smoker; TIA per patient; patient denies trauma to carotid arteries; high bifurcation is noted. EXAM MEASUREMENTS: RIGHT: Peak Systolic Velocity (PSV) cm/sec ----- Right CCA: 48.5 ----- Right ICA: 85.4 ----- Right ECA: 69.6 ICA/CCA ratio: 1.8 RIGHT: End Diastole cm/sec ----- Right CCA: 20.6 ----- Right ICA: 0.0 ----- Right ECA: 11.4 LEFT: Peak Systolic Velocity (PSV) cm/sec ----- Left CCA: 58.9 ----- Left ICA: 59.8 ----- Left ECA: 50.1 ICA/CCA ratio: 1.0 LEFT: End Diastole cm/sec ----- Left CCA: 20.4 ----- Left ICA: 22.9 ----- Left ECA: 15.1 VERTEBRALS (direction of flow): Right Vertebral: Antegrade Left Vertebral: Antegrade Rhythm: Normal Right CCA diameter increase is noted distally with intimal wall thickening/ echogenic wall plaque, an d narrow color flow channel imaged within this area. Mild to moderate intimal wall changes are also s een at bilateral carotid bifurcation, but PSV is wnl bilaterally. IMPRESSION: 1. Right-sided atherosclerotic changes. However, no significant hemodynamic stenosis by carotid Dopp ler ultrasound. Criteria for Assigning % of Stenosis / Diameter reduction (Estimation based on the indirect measurements of the internal carotid artery velocities (ICA PSV). 1. Normal (no stenosis)=ICA PSV < 125 cm/s: ratio < 2.0: ICA EDV<40 cm/s. 2. Less than 50% stenosis=ICA PSV < 125 cm/s: ratio < 2.0: ICA EDV<40 cm/s. 3. 50 to 69% stenosis=ICA PSV of 125 to 230 cm/s: ration 2.0 ? 4.0: ICA EDV 40-100 cm/s. 4. Greater than 70% stenosis to near occlusion= ICA PSV > 230 cm/s: ratio > 4.0: ICA EDV > 100 cm/s. 5. Near occlusion= ICA PSV velocities may be low or undetectable: variable ratio and ICA EDV. 6. Total occlusion=unable to detect flow.
--- NOTE | 2018-09-26 12:46 | ECHOF ---
Referral Reason:I25.10 Cardiovascular disease MEASUREMENTS -------- HEIGHT: 182.9 cm WEIGHT: 90.7 kg BP: RVIDd: 2.9 cm (< 3.3) IVSd: 1.3 cm (0.6 - 1.1) LVIDd: 5.1 cm (3.9 - 5.3) LVPWd: 1.7 cm (0.6 - 1.1) IVSs: 1.6 cm LVIDs: 5.0 cm LVPWs: 1.1 cm LAESV Index (A-L): 28.46 ml/m Ao Diam: 4.2 cm (2.0 - 3.7) MV EXCURSION: 19.436 mm (> 18.000) MV EF SLOPE: 98 mm/s (70 - 150) EPSS: 1.4 cm MV E Hugo: 0.54 m/s MV DecT: 190 ms MV A Hugo: 0.82 m/s MV E/A Ratio: 0.66 RAP: 5.00 mmHg RVSP: 20.18 mmHg FINDINGS -------- Sinus rhythm. This was a technically adequate study. The left ventricular size is normal. There is mild concentric left ventricular hypertrophy. There is mild global hypokinesis of LV . Overall left ventricular systolic function is mildly impaired w ith, an EF between 45 - 50 %. The right ventricle is normal in size. The left atrial size is normal. The right atrial size is normal. The aortic valve is trileaflet and appears structurally normal. Aortic Root is dilated and measures 4.2cm The mitral valve is normal. Mild mitral regurgitation is present. Mild tricuspid regurgitation present. Right ventricular systolic pressure is normal at < 35 mmHg. The right ventricular systolic pressure, as measured by Doppler, is 20.18mmHg. There is no pulmonic regurgitation present. The aortic root size is normal. There is no pericardial effusion. CONCLUSIONS -------- 1. Sinus rhythm. 2. This was a technically adequate study. 3. The left ventricular size is normal. 4. There is mild concentric left ventricular hypertrophy. 5. There is mild global hypokinesis of LV . 6. Overall left ventricular systolic function is mildly impaired with, an EF between 45 - 50 %. 7. The left atrial size is normal. 8. The aortic valve is trileaflet and appears structurally normal. 9. Aortic Root is dilated and measures 4.2cm 10. Mild mitral regurgitation is present. 11. Mild tricuspid regurgitation present. 12. Right ventricular systolic pressure is normal at < 35 mmHg. 13. There is no pulmonic regurgitation present. 14. The aortic root size is normal. 15. There is no pericardial effusion. LAB TECH: Cherise Ambriz RDCS
== END | disposition home or self-care (01) ==
LOC: RADUSMAIN 09:01
PROVIDERS: ATTEND Internal Medicine Interventional Cardiology
DX: I08.1 Rheumatic disorders of both mitral and tricuspid valves (principal); I65.21 Occlusion and stenosis of right carotid artery; I25.10 Atherosclerotic heart disease of native coronary artery without angina pectoris
CPT/HCPCS: 93306; 93880

== ENCOUNTER → 2018-12-08 | Outpatient (CLI) | payer OTHER ==
--- NOTE | 2018-12-08 15:17 | XR ---
EXAMINATION TYPE: XR chest 2V DATE OF EXAM: 12/08/2018 COMPARISON: Prior chest x-ray 11/11/2016 HISTORY: Pneumonia, cough TECHNIQUE: Frontal and lateral views of the chest are obtained. FINDINGS: There is no focal air space opacity, pleural effusion, or pneumothorax seen. The cardiac silhouette size is within normal limits. The osseous structures are intact. There is bronchial wall thickening. IMPRESSION: Correlate for bronchitis, reactive airways disease, follow-up as indicated
== END ==
LOC: RADXRMAIN 13:03
PROVIDERS: ATTEND Internal Medicine
DX: J40 Bronchitis, not specified as acute or chronic (principal)
CPT/HCPCS: 71046

== ENCOUNTER 2019-03-15 14:17 | Observation (INO) | payer OTHER ==
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
[2019-03-15 14:58] LABS: Basophils # (A) 0.1 k/uL (0-0.2); Basophils % (A) 1 %; Eosinophils # (A) 0.3 k/uL (0-0.7); Eosinophils % (A) 5 %; HCT 34.4 % (39.0-53.0); HGB 11.6 gm/dL (13.0-17.5); Lymphocytes # (A) 1.9 k/uL (1.0-4.8); Lymphocytes % (A) 28 %; MCH 28.6 pg (25.0-35.0); MCHC 33.6 g/dL (31.0-37.0); Monocytes # (A) 0.4 k/uL (0-1.0); Monocytes % (A) 6 %; Neutrophils # (A) 3.9 k/uL (1.3-7.7); Neutrophils % (A) 57 %; Platelet Count 241 k/uL (150-450); RBC 4.05 m/uL (4.30-5.90); RDW 15.4 % (11.5-15.5); WBC 6.8 k/uL (3.8-10.6)
[2019-03-15 15:08] LABS: ALT 20 U/L (21-72); AST 20 U/L (17-59); Albumin 3.9 g/dL (3.5-5.0); Alkaline Phosphatase 74 U/L (38-126); Anion Gap 6 mmol/L; Blood Urea Nitrogen 17 mg/dL (9-20); Calcium 9.4 mg/dL (8.4-10.2); Carbon Dioxide 24 mmol/L (22-30); Chloride 106 mmol/L (98-107); Glucose 87 mg/dL (74-99); Lipase 61 U/L (23-300); Magnesium 1.8 mg/dL (1.6-2.3); Sodium 136 mmol/L (137-145); Total Bilirubin 0.6 mg/dL (0.2-1.3); Total Protein 6.6 g/dL (6.3-8.2)
[2019-03-15 15:17] LABS: INR 0.9 (<1.2); Partial Thromboplastin Time 25.2 sec (22.0-30.0); Prothrombin Time 9.8 sec (9.0-12.0)
--- NOTE | 2019-03-15 15:38 | XR ---
EXAMINATION TYPE: XR chest 2V DATE OF EXAM: 03/15/2019 COMPARISON: 12/08/2018 HISTORY: Chest pain, weakness and nausea TECHNIQUE: Frontal and lateral views of the chest are obtained. FINDINGS: There is no focal air space opacity, pleural effusion, or pneumothorax seen. The cardiac silhouette size is upper limits of normal. The osseous structures are intact. Mild multilevel degen erative changes of the spine. Mild acromioclavicular arthropathy bilaterally. IMPRESSION: No acute cardiopulmonary process.
[2019-03-15] MEDS ORDERED: HEPARIN SODIUM,PORCINE 5,000 UNIT/ML 1 ML VIAL IV ONE (18:48)
[2019-03-15] MEDS ORDERED: NITROGLYCERIN SL TABS 0.4 MG TAB SUBLINGUAL PRN ×2 (18:48→18:50)
[2019-03-15] MEDS ORDERED: ALBUTEROL NEBULIZED 2.5 MG/3 ML INHALATION PRN (18:50)
[2019-03-15] MEDS: HEPARIN SOD,PORK IN 0.45% NACL 25,000 UNIT in 0.45% NACL 1 250ML.BAG IV SCH (19:03)
[2019-03-15] MEDS ORDERED: ASPIRIN-ACET-CAFF 250-250-65MG 1 EACH TAB PO PRN (20:07)
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
[2019-03-15] MEDS ORDERED: ATORVASTATIN 20 MG TAB PO SCH (21:00)
[2019-03-15 21:54] VITALS: BMI 28.3
[2019-03-15] MEDS: METOPROLOL TARTRATE 25 MG TAB PO SCH (23:54)
[2019-03-15] MEDS: GABAPENTIN 300 MG CAP PO SCH (23:55)
[2019-03-16 03:30] LABS: Cholesterol 149 mg/dL (<200); HDL Cholesterol 59 mg/dL (40-60); LDL Cholesterol,Calculated 76 mg/dL (0-99); Triglycerides 68 mg/dL (<150)
[2019-03-16] MEDS: LEVOTHYROXINE 100 MCG TAB PO SCH (05:17)
[2019-03-16] MEDS ORDERED: SODIUM CHLORIDE 0.9% 1,000 ML in EMPTY BAG 1 BAG IV ONE (08:12)
[2019-03-16] MEDS ORDERED: ALPRAZolam 0.25 MG TAB PO PRN (08:12)
[2019-03-16] MEDS ORDERED: NITROGLYCERIN SL TABS 0.4 MG TAB SUBLINGUAL PRN ×2 (08:12→10:31)
[2019-03-16] MEDS ORDERED: ASPIRIN 325 MG TAB PO STA (08:12)
[2019-03-16] MEDS ORDERED: ATORVASTATIN 80 MG TAB PO STA (08:12)
[2019-03-16] MEDS ORDERED: ALPRAZolam 0.5 MG TAB PO PRN (08:12)
[2019-03-16] MEDS ORDERED: methylPREDNISolone SOD SUCCI 125 MG/2 ML VIAL IV STA (08:14)
[2019-03-16] MEDS ORDERED: diphenhydrAMINE 50 MG/ML 1 ML VIAL IVP STA (08:14)
[2019-03-16] MEDS ORDERED: FAMOTIDINE 20 MG/2 ML VIAL IV STA (08:14)
[2019-03-16] MEDS: GABAPENTIN 300 MG CAP PO SCH ×3 (08:24→20:52)
[2019-03-16] MEDS: CHOLECALCIFEROL 1,000 UNIT TAB PO SCH (08:24)
[2019-03-16] MEDS: PANTOPRAZOLE 40 MG TABLET PO SCH (08:24)
[2019-03-16] MEDS: LOSARTAN 50 MG TAB PO SCH (08:25)
[2019-03-16] MEDS: METOPROLOL TARTRATE 25 MG TAB PO SCH ×2 (08:25→20:52)
[2019-03-16] MEDS: CLOPIDOGREL 75 MG TAB PO SCH (08:25)
[2019-03-16] MEDS: CITALOPRAM HYDROBROMIDE 20 MG TAB PO SCH (08:25)
[2019-03-16] MEDS ORDERED: ASPIRIN 325 MG TAB PO SCH ×2 (09:00)
[2019-03-16] MEDS ORDERED: VERAPAMIL 2.5 MG/ML 2 ML AMP ONE (09:05)
[2019-03-16] MEDS ORDERED: LIDOCAINE 1% INJ 10MG/ML (20 ML MDV) ONE (09:05)
[2019-03-16] MEDS ORDERED: HEPARIN SODIUM 1,000 UN/ML (10ML VL) ONE (09:06)
--- NOTE | 2019-03-16 09:06 | CONS ---
CONSULTATION CHIEF COMPLAINT: Chest pain. Myles Sow is a 58-year-old gentleman with history of coronary artery disease, status post angioplasty of the left circumflex coronary artery in June of 2018, hypertension, dyslipidemia, who presented to hospital complaining of chest pain. He describes it as a precordial chest pressure, mild to moderate intensity that radiates to his left arm. He has had on and off episodes for several days, that brought him to the hospital. EKG does not reveal ischemic changes. Cardiac enzymes have been negative. At the time of my evaluation, he appears symptom-free. Given his known CAD and symptoms suggestive of unstable angina, I advised the patient to undergo cardiac catheterization for further evaluation. He has been explained of risks, benefits and alternatives, understood and accepted. PAST MEDICAL HISTORY: Significant for hypertension, dyslipidemia, hypothyroidism. CURRENT MEDICATIONS: Include aspirin, Celexa, Plavix, Neurontin, Synthroid, Cozaar, Lopressor 25 b.i.d., Prilosec, and Zocor. ALLERGIES: CODEINE, IODINE and SHELLFISH. FAMILY HISTORY: Negative for premature coronary artery disease. SOCIAL HISTORY: Negative for current smoking, EtOH abuse, or drug abuse. REVIEW OF SYSTEMS: HEENT: Unremarkable. CARDIAC: As described above. RESPIRATORY: Negative. GI: Negative. GENITOURINARY Negative. ALLERGY/IMMUNOLOGY: Negative. SKIN: Negative. MUSCULOSKELETAL: Significant for arthritis. PSYCHOSOCIAL: Negative. ENDOCRINE: Negative. CONSTITUTIONAL: Negative. ONCOLOGICAL: Negative Rest of the system review is not relevant. PHYSICAL EXAMINATION: On exam, patient is comfortable at rest. Vital signs are stable. There is no jugular venous distention. Carotid upstroke is normal. There is no bruit. Chest exam reveals good air entry bilaterally. Heart exam reveals first and second heart sounds. No gallop. No murmur. Abdomen is soft, nontender. Exam of extremities did not reveal any edema. Peripheral pulses are felt. ETL BI DEVELOPER exam did not reveal focal neurological deficits. LABS: Show that hemoglobin is low at 11.6, platelet count is 241, potassium is 0.7. Three sets of cardiac enzymes are negative. LDL cholesterol is 76. ASSESSMENT: Unstable angina. PLAN: Patient will undergo cardiac catheterization for further evaluation. He has been explained of risks, benefits and alternatives, understood and accepted. MMODL / IJN: [id number] /
--- NOTE | 2019-03-16 09:07 | ECHOF ---
Referral Reason:cp MEASUREMENTS -------- HEIGHT: 182.9 cm WEIGHT: 94.8 kg BP: 145/80 RVIDd: 3.5 cm (< 3.3) IVSd: 1.3 cm (0.6 - 1.1) LVIDd: 5.5 cm (3.9 - 5.3) LVPWd: 1.3 cm (0.6 - 1.1) IVSs: 1.6 cm LVIDs: 3.5 cm LVPWs: 1.6 cm LA Diam: 3.1 cm (2.7 - 3.8) LAESV Index (A-L): 15.96 ml/m Ao Diam: 4.2 cm (2.0 - 3.7) AV Cusp: 2.5 cm (1.5 - 2.6) MV EXCURSION: 18.547 mm (> 18.000) MV EF SLOPE: 108 mm/s (70 - 150) EPSS: 1.3 cm MV E Hugo: 0.74 m/s MV DecT: 274 ms MV A Hugo: 0.74 m/s MV E/A Ratio: 1.01 FINDINGS -------- Sinus rhythm. This was a technically good study. The left ventricular size is normal. There is mild concentric left ventricular hypertrophy. Overa ll left ventricular systolic function is normal with, an EF between 55 - 60 %. The right ventricle is mildly enlarged. Normal LA size by volume 22+/-6 ml/m2. The right atrium is normal in size. Interatrial and interventricular septum intact. The aortic valve is trileaflet and appears structurally normal. The mitral valve is normal. The tricuspid valve appears structurally normal. The pulmonic valve was not well visualized. The aortic root is dilated measuring 4.2cm. Normal inferior vena cava with normal inspiratory collapse consistent with estimated right atrial pre ssure of 5 mmHg. There is no pericardial effusion. CONCLUSIONS -------- 1. Sinus rhythm. 2. This was a technically good study. 3. The left ventricular size is normal. 4. There is mild concentric left ventricular hypertrophy. 5. Overall left ventricular systolic function is normal with, an EF between 55 - 60 %. 6. The right ventricle is mildly enlarged. 7. Normal LA size by volume 22+/-6 ml/m2. 8. The right atrium is normal in size. 9. Interatrial and interventricular septum intact. 10. The aortic valve is trileaflet and appears structurally normal. 11. The mitral valve is normal. 12. The tricuspid valve appears structurally normal. 13. The pulmonic valve was not well visualized. 14. The aortic root is dilated measuring 4.2cm. 15. Normal inferior vena cava with normal inspiratory collapse consistent with estimated right atrial pressure of 5 mmHg. 16. There is no pericardial effusion. CAMERA PROTOTYPING ENGINEER: Rosy Dukes RDCS
[2019-03-16] MEDS ORDERED: MIDAZOLAM (PF) 2 MG/2 ML VIAL IVP ONE (09:46)
[2019-03-16] MEDS ORDERED: SODIUM CHLORIDE 0.9% 1,000 ML IV ONE (09:48)
[2019-03-16] MEDS ORDERED: LIDOCAINE 1% INJ 10MG/ML (20 ML MDV) SQ ONE (09:52)
[2019-03-16] MEDS ORDERED: VERAPAMIL SYRINGE (5 MG/10 ML) INTRAARTER ONE (09:56)
[2019-03-16] MEDS ORDERED: BIVALIRUDIN BOLUS 250 MG/50 ML IV ONE (10:05)
[2019-03-16] MEDS ORDERED: BIVALIRUDIN 250 MG in SODIUM CHLORIDE 0.9% 50 ML IV ONE (10:08)
[2019-03-16] MEDS ORDERED: IOPAMIDOL-370 100ML BTL INJ ONE ×2 (10:23→10:26)
[2019-03-16] MEDS ORDERED: CLOPIDOGREL 75 MG TAB PO ONE (10:26)
[2019-03-16] MEDS ORDERED: CLOPIDOGREL 75 MG TAB ONE (10:28)
[2019-03-16] MEDS ORDERED: MAG HYDROX/AL HYDROX/SIMETH 30 ML CUP PO PRN (10:31)
[2019-03-16] MEDS ORDERED: ZOLPIDEM 5 MG TAB PO PRN (10:31)
[2019-03-16] MEDS ORDERED: RX INFO: IV CONTRAST WAS GIVEN 1 EACH MISC MISCELLANE PRN (10:31)
[2019-03-16] MEDS ORDERED: ATROPINE SULFATE 0.1 MG/ML 10ML SYRINGE IV PRN (10:31)
[2019-03-16] MEDS ORDERED: SODIUM CHLORIDE 0.9% 1,000 ML IV SCH (10:45)
--- NOTE | 2019-03-16 10:50 | LTR ---
March 16, 2019 Re: Myles Sow Dear Dr. Ahn: Mr. Myles Sow underwent successful balloon angioplasty and stenting of the left circumflex with good angiographic results and without any complication. Thank you for allowing me to participate in his care and please do not hesitate to call if you have any question or concern. Sincerely, Adrian Gao MD [id number] / FREDA: [id number] /
--- NOTE | 2019-03-16 11:12 | CC ---
CARDIAC CATHETERIZATION REPORT DATE OF SERVICE: 03/16/2019 PERFORMING PHYSICIAN: Adrian Gao MD, Breeding Technician. PROCEDURE PERFORMED: 1. Selective right and left coronary angiogram. 2. Left heart catheterization. 3. Successful stenting of the ostial left circumflex coronary artery using 3.25 x 15 mm Xience JOAN with an excellent angiographic results and reduction of stenosis from 90% to 0%. INDICATION: This is a 58-year-old gentleman with history of coronary artery disease and prior stenting of the left circumflex as well as history of smoking, presented to the hospital with chest discomfort. The chest discomfort was concerning for angina. The patient has been utilizing more nitroglycerin sublingual. Because of that, heart catheterization was advised. APPROACH: Right radial artery. COMPLICATION: None. LEVEL OF SEDATION: Moderate with sedation length of 38 minutes. PROCEDURE DESCRIPTION: After obtaining an informed consent, the patient was brought to the cardiac cathode ray tube assembler. The right radial artery was cannulated using micropuncture technique and a micropuncture wire passed easily and a 6-Swedish sheath in the right radial artery. After that I gave the patient 2 mg of verapamil IA. Selective right and left coronary angiogram performed using JR4 and JL3.5 catheters. The left heart catheterization was performed using the JR4 catheter which flipped into the LV then I did pullback across aortic valve. After that I did intervene on the left circumflex, please see a separate paragraph for that. SELECTIVE CORONARY ANGIOGRAM: 1. The right coronary artery is a large caliber vessel. It is a dominant vessel. The RCA has intermediate disease in the midportion, appeared to be in the range of 50%. Distally bifurcates into PDA and PLV branches, both appeared to be angiographically normal. 2. The left main is angiographically normal. It bifurcates into the circumflex and left anterior descending artery. 3. The left circumflex is a large caliber vessel. It is a nondominant vessel with the ostial/proximal left circumflex is stented with severe in-stent restenosis. The mid left circumflex has mild to moderate disease only. The left circumflex distally appeared to be angiographically normal. 4. The LAD, the proximal LAD appeared to be normal. The mid LAD and distal LAD appeared to be angiographically normal. The LAD gives rise into a large diagonal branch which has severe disease in the proximal portion, appeared to be in the range of 70%. HEMODYNAMICS: The left ventricular end-diastolic pressure was about 10 mmHg without significant gradient across the aortic valve. PCI OF THE LEFT CIRCUMFLEX: Anticoagulation was initiated using Angiomax. Subsequently, I did engage the left main using JL3.5 Guide. I did wire the LAD using a run-through wire and I did wire the left circumflex using a run-through wire as well. After that, I did balloon angioplasty of the proximal circumflex using 2.5 x 10 mm AngioSculpt balloon before I deployed a 3.25 x 15 mm Xience drug-eluting stent where the stent was positioned under fluoroscopy guidance and deployed under 12 atmospheres for 20 seconds with the following angiogram showing good angiographic results and the procedure was completed without any complication. CONCLUSION: 1. Intermediate disease involving the mid right coronary artery, seems to be unchanged compared to before. 2. Severe in-stent restenosis involving the ostial/proximal LCX. 3. Severe disease involving the ostial/proximal diagonal branch of the left anterior descending artery. 4. Successful stenting of the ostial/proximal left circumflex using 3.25 x 15 mm Xience JOAN with an excellent angiographic result. POSTPROCEDURE MANAGEMENT: 1. Dual anti-platelet therapy. 2. Risk factor modifications. 3. Follow up with the patient. MMODL / IJN: [id number] /
--- NOTE | 2019-03-16 15:24 | P.PN ---
Subjective Progress Note Date: 03/16/19 (Underwent cardiac cath today) Principal diagnosis: Echocardiogram: Sinus rhythm, mild concentric left ventricular hypertrophy ejection fraction 55-60% Procedure cardiac cath: #1 selective right and left coronary artery angiogram. #2 left heart cardiac catheterization. #3 successful stenting of the ostial left circumflex coronary artery using 3.5 multiplied by 15 mm Xience JOAN with excellent angiographic result and the reduction of the stenosis from 920 percent Cardiac cath with improvement of the right radial artery. By Dr. Angelo on 03/16/2019. Patient Presented with Chest Pain and Was Recurrent. Patient Seen and Evaluated Post Cardiac Cath. Patient Is Conscious Alert Oriented 3. Vital Sign Temperature 98.2 F Orally. Heart Rate 56 Bpm. Blood Pressure 123/77 with a Mean 92. Pulse Ox 98% on Room Air. Clinical Exam: Patient Denied Any Chest Pain, Conscious Alert Oriented 3. No Evidence of Cardiac Dysrhythmia except Bradycardia. HEENT Negative No Changes. Head Was Normocephalic and Atraumatic and He Had Artificial Eye on the Left Eye. Neck: No Evidence of Abnormalities and No JVD No Thyromegaly No Lymphadenopathy. Chest Is Clear to Auscultation and Percussion. No Wheezes or Rhonchi's. Heart Regular Sinus Rhythm with Bradycardia. Status Post Cardiac C atheterization and His Blood Pressure Is Stable. Abdomen Soft. Bowel Sounds No Organomegaly Enlargement. Extremities No Edema. Pulses. Neurologically: Stable No Lateralizing Sign. Psychiatry Normal Mood. Assessment: #1 Chest Pain, Normal EKG Normal Cardiac Enzyme #2 Patient Well Known to Dr. Angelo with a History of Recurrent Chest Pain He Took Him to the Cardiac Catheterization and He Found the Ostial Stenosis of the Left Circumflex Where He Stented Ballooned It. Patient 3 of Chest Pain Now Plan for Discharge Home Tomorrow If No Further Complain or Complication. Continue the Current Medication. Objective - Vital Signs Vital signs: Vital Signs Temp 98.2 F 03/16/19 13:45 Pulse 56 L 03/16/19 13:45 Resp 18 03/16/19 13:45 BP 123/77 03/16/19 13:45 Pulse Ox 98 03/16/19 13:45 Intake & Output 03/15/19 03/16/19 03/16/19 18:59 06:59 18:59 Intake Total 721 Balance 721 Weight 94.801 kg 94.801 kg Intake: IV 181 Sodium Chloride 0.9% 1, 50 000 ml @ 100 mls/hr IV . Q10H [facility] Rx#:[id number] Oral 540 Other: Voiding Method Toilet - Labs CBC & Chem 7: 03/15/19 14:30 03/15/19 14:30 Labs: Abnormal Lab Results - Last 24 Hours (Table) 03/16/19 Range/Units 01:04 APTT 54.0 H (22.0-30.0) sec
[2019-03-17] MEDS: LEVOTHYROXINE 100 MCG TAB PO SCH (06:26)
[2019-03-17] MEDS: PANTOPRAZOLE 40 MG TABLET PO SCH (06:26)
--- NOTE | 2019-03-17 08:17 | P.PN ---
Subjective Progress Note Date: 03/17/19 Principal diagnosis: Coronary artery disease This is a pleasant 58-year-old gentleman with history of CAD and prior stenting of the left circumflex as well as significant history of smoking was admitted to the observation unit with a chest discomfort which was concerning for angina. He was seen by Dr. Villela who recommended proceeding with coronary angiogram. I did perform a coronary angiogram on him yesterday and that revealed severe instent restenosis involving the proximal/ostial LCx where he underwent successful balloon angioplasty and stenting of the LCx with a good angiographic results and without any complication. The procedure was performed from the right radial approach. On follow-up with him today, March 172018, he seems to be asymptomatic from a cardiovascular standpoint overview. The right radial site seems to be soft was mild swelling with a good pulse. He continues to be on dual antiplatelet therapy. From the cardiovascular standpoint of view, the patient can be discharged home. Objective - Vital Signs Vital signs: Vital Signs Temp 98.2 F 03/17/19 04:00 Pulse 51 L 03/17/19 04:00 Resp 18 03/17/19 04:00 BP 134/81 03/17/19 04:00 Pulse Ox 94 L 03/17/19 04:00 Intake & Output 03/16/19 03/17/19 03/17/19 18:59 06:59 18:59 Intake Total 896 240 Balance 896 240 Weight 94.801 kg 91.6 kg Intake: IV 181 Sodium Chloride 0.9% 1, 50 000 ml @ 100 mls/hr IV . Q10H [facility] Rx#:[id number] Oral 715 240 Other: Voiding Method Toilet Toilet # Voids 2 - Constitutional General appearance: Present: no acute distress - Respiratory Respiratory: bilateral: CTA - Cardiovascular Rhythm: regular Heart sounds: normal: S1, S2 - Labs CBC & Chem 7: 03/15/19 14:30 03/17/19 05:53 Assessment and Plan Assessment: Assessment #1 unstable angina #2 status post PCI of the LCx #3 significant history of smoking Plan #1 continue dual antiplatelet therapy #2 the patient can be discharged home #3 smoking cessation was discussed with him.
[2019-03-17] MEDS: HEPARIN SOD,PORK IN 0.45% NACL 25,000 UNIT in 0.45% NACL 1 250ML.BAG IV SCH (08:52)
[2019-03-17] MEDS: METOPROLOL TARTRATE 25 MG TAB PO SCH (08:59)
[2019-03-17] MEDS: CITALOPRAM HYDROBROMIDE 20 MG TAB PO SCH (08:59)
[2019-03-17] MEDS: LOSARTAN 50 MG TAB PO SCH (09:00)
[2019-03-17] MEDS ORDERED: ASPIRIN 325 MG TAB PO SCH (09:00)
[2019-03-17] MEDS: CHOLECALCIFEROL 1,000 UNIT TAB PO SCH (09:00)
[2019-03-17] MEDS: GABAPENTIN 300 MG CAP PO SCH (09:00)
[2019-03-17] MEDS: CLOPIDOGREL 75 MG TAB PO SCH (09:00)
[2019-03-17 09:14] VITALS: BP 120/62; PULSE 75; RESP 20; TEMP 97.8
[2019-03-17] MEDS ORDERED: NICOTINE 14MG/24HR PATCH TRANSDERM SCH (12:30)
--- NOTE | 2019-03-17 12:43 | P.DS ---
Providers Date of admission: 03/15/19 18:48 Expected date of discharge: 03/17/19 (Chest pain, cardiac cath, restenosis and stent applied.) Attending physician: Aries Ahn Consults: 03/15/19 18:48 Consult Physician Urgent Consulting Provider: Deepthi Rhodes Consult Reason/Comments: Unstable angina Do you want consulting provider notified?: Yes 03/16/19 10:31 Consult Physician Routine Consulting Provider: [facility] Consult Reason/Comments: Post Interventional patient Do you want consulting provider notified?: Already Contacted Primary care physician: Aries Ahn This is a discharge summary date of service 03/17/2019. Discharge Diagnoses.: #1 chest pain recurrent. #[address] Angelo #3 angioplasty and stent placement in the ostial stenosis with recovery from 90% to 0. In the ostial left circumflex. Chronic diagnoses: Hypothyroidism, COPD, left eye total prosthesis. Coronary artery disease and history of previous stent placement prior to this admission atherosclerotic heart disease., Hypertension, pericardial. Chronic smoker. Patient stable on discharge. Cleared by cardiology for discharge, cessation of smoking counseled and started on nicotine patch. ER presentation: Chest pain recurrent substernal. EKG and cardiac enzyme was normal. Initial. Hospital course: Patient seen by Dr. Can security services manager followed by Dr. Angelo security services manager and the decision to the cardiac catheterization which was done on 03/16/2019 and found he had restenosis in the ostial left circumflex. Patient underwent angioplasty and stent and recovered with no complication. Patient cleared for discharge today follow-up with Dr. Angelo next week as well as myself Dr. Ahn next week as well. The medication reviewed and the nicotine patch ordered 14 mg once a day reapplied in a.m. and removed in the p.m. after counseling with history of resistant to quit smoking. Physical exam on discharge: Multiples vital sign was stable, conscious alert oriented 3. HEENT normal no change with the artificial eye on the left side. Neck was supple no JVD no thyromegaly no lymphadenopathy. Chest clear to auscultation percussion. With the underlying increased anteropos terior diameter with history of COPD. Heart regular sinus rhythm. Abdomen soft positive bowel sounds no tenderness Extremities no edema positive pulses ambulatory. Neurologically: Stable ambulatory no lateralization no evidence of new event Psychiatry: Normal mood. Assessment: Stable general condition for discharge Plan follow-up with the security services manager Dr. Angelo and the primary care Dr. Singh. Continue the current medication. Patient Condition at Discharge: Stable Plan - Discharge Summary New Discharge Prescriptions: New Nitroglycerin Sl Tabs [Nitrostat] 0.4 mg SUBLINGUAL Q5M PRN #25 tab PRN Reason: Chest Pain Nicotine 14Mg/24Hr Patch [Habitrol] 1 patch TRANSDERM DAILY #30 patch Continue Citalopram Hydrobromide [CeleXA] 40 mg PO DAILY Nitroglycerin Sl Tabs [Nitrostat] 0.4 mg SUBLINGUAL Q5M PRN PRN Reason: Chest Pain Simvastatin [Zocor] 40 mg PO HS Metoprolol Tartrate [Lopressor] 25 mg PO BID Albuterol Inhaler [Ventolin Hfa Inhaler] 2 puff INHALATION RT-Q6H PRN PRN Reason: Shortness Of Breath Gabapentin [Neurontin] 300 mg PO TID Omeprazole [PriLOSEC] 20 mg PO BID Aspirin EC [Ecotrin] 325 mg PO DAILY Losartan Potassium [Cozaar] 50 mg PO DAILY Cholecalciferol (Vitamin D3) [Vitamin D3] 2,000 unit PO DAILY Clopidogrel [Plavix] 75 mg PO DAILY #90 tab Levothyroxine Sodium [Synthroid] 100 mcg PO DAILY Discontinued Aspirin/Acetaminophen/Caffeine [Excedrin Extra Strength Caplet] 1 tab PO BID PRN PRN Reason: Migraine Headache Discharge Medication List Albuterol Inhaler [Ventolin Hfa Inhaler] 2 puff INHALATION RT-Q6H PRN 10/01/14 [History] Citalopram Hydrobromide [CeleXA] 40 mg PO DAILY 10/01/14 [History] Metoprolol Tartrate [Lopressor] 25 mg PO BID 10/01/14 [History] Nitroglycerin Sl Tabs [Nitrostat] 0.4 mg SUBLINGUAL Q5M PRN 10/01/14 [History] Simvastatin [Zocor] 40 mg PO HS 10/01/14 [History] Gabapentin [Neurontin] 300 mg PO TID 05/25/15 [History] Aspirin EC [Ecotrin] 325 mg PO DAILY 07/06/18 [History] Cholecalciferol (Vitamin D3) [Vitamin D3] 2,000 unit PO DAILY 07/06/18 [History] Losartan Potassium [Cozaar] 50 mg PO DAILY 07/06/18 [History] Omeprazole [PriLOSEC] 20 mg PO BID 07/06/18 [History] Clopidogrel [Plavix] 75 mg PO DAILY #90 tab 07/14/18 [Rx] Levothyroxine Sodium [Synthroid] 100 mcg PO DAILY 03/15/19 [History] Nicotine 14Mg/24Hr Patch [Habitrol] 1 patch TRANSDERM DAILY #30 patch 03/17/19 [Rx] Nitroglycerin Sl Tabs [Nitrostat] 0.4 mg SUBLINGUAL Q5M PRN #25 tab 03/17/19 [Rx] Follow up Appointment(s)/Referral(s): Adrian Gao MD [STAFF PHYSICIAN] - 1 Week Aries Ahn MD [Primary Care Provider] - 3 Days Discharge Disposition: HOME SELF-CARE
[2019-03-17] MEDS ORDERED: ATORVASTATIN 20 MG TAB PO SCH (21:00)
== END 2019-03-17 13:33 | disposition home or self-care (01) ==
LOC: EC 14:17 → 1SOBS 18:48 → 3SCARD 03-16 13:02
PROVIDERS: ADMIT Internal Medicine; ATTEND Internal Medicine
DX: T82.855A Stenosis of coronary artery stent, initial encounter (principal); I25.110 Atherosclerotic heart disease of native coronary artery with unstable angina pectoris; J44.9 Chronic obstructive pulmonary disease, unspecified; I11.0 Hypertensive heart disease with heart failure; I50.9 Heart failure, unspecified; K21.9 Gastro-esophageal reflux disease without esophagitis; E78.5 Hyperlipidemia, unspecified; M19.90 Unspecified osteoarthritis, unspecified site; I83.90 Asymptomatic varicose veins of unspecified lower extremity; E03.9 Hypothyroidism, unspecified; F17.210 Nicotine dependence, cigarettes, uncomplicated; G43.909 Migraine, unspecified, not intractable, without status migrainosus; R00.1 Bradycardia, unspecified; F32.9 Major depressive disorder, single episode, unspecified; Z79.82 Long term (current) use of aspirin; Z79.890 Hormone replacement therapy; Z79.02 Long term (current) use of antithrombotics/antiplatelets; Z79.899 Other long term (current) drug therapy; Z88.5 Allergy status to narcotic agent; Z91.013 Allergy to seafood; Z91.048 Other nonmedicinal substance allergy status; Z86.73 Personal history of transient ischemic attack (TIA), and cerebral infarction without residual deficits; I25.2 Old myocardial infarction; Z90.49 Acquired absence of other specified parts of digestive tract; Z95.5 Presence of coronary angioplasty implant and graft; Z97.0 Presence of artificial eye; Z80.1 Family history of malignant neoplasm of trachea, bronchus and lung; Z82.49 Family history of ischemic heart disease and other diseases of the circulatory system
CPT/HCPCS: 99152; 99153 ×2; 96374; 99285; 36415; 93005; 93306; 93458; 83880; 80061; 80053; 82565; 83690; 83735; 84484 ×2; 85025; 85610; 85730 ×2; 71046; G0378 ×3; C9600; C1887; C1769 ×3; C1725; C1874; C1894; J1200; J1644 ×2; J2930; J2001; J0583; Q9967; J2250

== ENCOUNTER → 2019-06-18 | Outpatient (CLI) | payer OTHER ==
--- NOTE | 2019-06-18 12:20 | XR ---
EXAMINATION TYPE: XR knee complete LT DATE OF EXAM: 06/18/2019 COMPARISON: NONE HISTORY: Pain TECHNIQUE: Four views are submitted. FINDINGS: There is narrowing of medial compartment knee joint was small hypertrophic spurring. Spurring involvi ng the patella noted. Small suprapatellar bursal fluid collection.. Osseous structures are intact. No acute fracture seen. IMPRESSION: 1. Moderate osteoarthritis.
== END | disposition home or self-care (01) ==
LOC: RADXRMAIN 11:56
PROVIDERS: ATTEND Internal Medicine
DX: M17.12 Unilateral primary osteoarthritis, left knee (principal)

== ENCOUNTER 2019-07-30 16:47 | Emergency (ER) | payer OTHER ==
[2019-07-30 17:03] VITALS: BP 127/79; PULSE 64; RESP 20; TEMP 97.6
--- NOTE | 2019-07-30 17:31 | XR ---
EXAMINATION TYPE: XR hand complete LT DATE OF EXAM: 07/30/2019 COMPARISON: NONE HISTORY: Pain TECHNIQUE: 3 views FINDINGS: There is slight deformity of the fifth metacarpal that probably relates to old healed fract ure. I see no acute fracture nor dislocation. There is soft tissue swelling on the dorsum of the MP j oints. Carpal bones are intact. IMPRESSION: No acute bony abnormality. Soft tissue swelling.
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
== END 2019-07-30 17:56 | disposition home or self-care (01) ==
LOC: EC 16:47
DX: S63.91XA Sprain of unspecified part of right wrist and hand, initial encounter (principal); I25.119 Atherosclerotic heart disease of native coronary artery with unspecified angina pectoris; J44.9 Chronic obstructive pulmonary disease, unspecified; I25.2 Old myocardial infarction; I11.0 Hypertensive heart disease with heart failure; I50.9 Heart failure, unspecified; K21.9 Gastro-esophageal reflux disease without esophagitis; E78.5 Hyperlipidemia, unspecified; F41.9 Anxiety disorder, unspecified; F32.9 Major depressive disorder, single episode, unspecified; F17.200 Nicotine dependence, unspecified, uncomplicated; Z79.82 Long term (current) use of aspirin; Z79.890 Hormone replacement therapy; Z79.899 Other long term (current) drug therapy; Z88.5 Allergy status to narcotic agent; Z91.013 Allergy to seafood; Z91.048 Other nonmedicinal substance allergy status; Z95.5 Presence of coronary angioplasty implant and graft; Z86.73 Personal history of transient ischemic attack (TIA), and cerebral infarction without residual deficits; W22.01XA Walked into wall, initial encounter
CPT/HCPCS: 99284

== ENCOUNTER → 2019-09-12 | Outpatient (CLI) | payer OTHER ==
[2019-09-12 10:17] LABS: Basophils % (A) 1 %; Eosinophils # (A) 0.5 k/uL (0-0.7); Eosinophils % (A) 7 %; HCT 37.4 % (39.0-53.0); HGB 12.3 gm/dL (13.0-17.5); Lymphocytes # (A) 1.8 k/uL (1.0-4.8); Lymphocytes % (A) 26 %; MCH 29.3 pg (25.0-35.0); MCHC 32.9 g/dL (31.0-37.0); Mean Platelet Volume 6.6; Monocytes # (A) 0.4 k/uL (0-1.0); Monocytes % (A) 6 %; Neutrophils # (A) 4.1 k/uL (1.3-7.7); Neutrophils % (A) 58 %; Platelet Count 264 k/uL (150-450); RDW 13.6 % (11.5-15.5)
[2019-09-12 11:32] LABS: Erythrocyte Sedimentation Rate 28 mm/hr (0-15)
[2019-09-12 16:16] LABS: ALT 22 U/L (10-49); AST 24 U/L (14-35); African American GFR (CKD) 111.7 (60.0-200.0); Albumin/Globulin Ratio 2.05 (1.60-3.17); Alkaline Phosphatase 101 U/L (41-126); C Reactive Protein <0.4 mg/dL (0.0-0.8); Calcium 9.3 mg/dL (8.7-10.3); Carbon Dioxide 26.9 mmol/L (21.6-31.8); Chloride 103 mmol/L (96-109); Cholesterol 168 mg/dL (0-200); Creatine Kinase 68 U/L (35-257); Globulin 2.1 g/dL (1.6-3.3); Glucose 85 mg/dL (70-110); LDL Cholesterol,Calculated 95.6 mg/dL (0.0-131.0); Non-African American GFR(CKD) 96.4 (60.0-200.0); Potassium 4.7 mmol/L (3.5-5.5); Sodium 137 mmol/L (135-145); Total Bilirubin 0.5 mg/dL (0.3-1.2); Total Protein 6.4 g/dL (6.2-8.2)
== END | disposition home or self-care (01) ==
LOC: LABWHC1 08:55
PROVIDERS: ATTEND Internal Medicine
DX: N40.0 Benign prostatic hyperplasia without lower urinary tract symptoms (principal); J44.9 Chronic obstructive pulmonary disease, unspecified; E78.5 Hyperlipidemia, unspecified; I10 Essential (primary) hypertension; M81.0 Age-related osteoporosis without current pathological fracture
CPT/HCPCS: 36415; 80053; 80061; 82550; 84153; 84439; 84443; 85025; 85652; 86140

== ENCOUNTER → 2019-10-15 | Outpatient (CLI) | payer OTHER ==
[2019-10-15 12:17] LABS: Basophils # (A) 0.1 k/uL (0-0.2); Basophils % (A) 1 %; Eosinophils # (A) 0.5 k/uL (0-0.7); Eosinophils % (A) 4 %; HCT 38.8 % (39.0-53.0); HGB 12.9 gm/dL (13.0-17.5); Lymphocytes # (A) 2.1 k/uL (1.0-4.8); Lymphocytes % (A) 16 %; MCH 29.5 pg (25.0-35.0); MCHC 33.2 g/dL (31.0-37.0); MCV 88.9 fL (80.0-100.0); Mean Platelet Volume 7.4; Monocytes # (A) 0.7 k/uL (0-1.0); Monocytes % (A) 5 %; Neutrophils # (A) 9.3 k/uL (1.3-7.7); Neutrophils % (A) 72 %; Platelet Count 291 k/uL (150-450); RBC 4.37 m/uL (4.30-5.90); RDW 13.6 % (11.5-15.5)
--- NOTE | 2019-10-15 15:12 | XR ---
EXAMINATION TYPE: XR chest 2V DATE OF EXAM: 10/15/2019 COMPARISON: Prior chest x-ray dated 03/15/[address] 08/17/2017 HISTORY: Upper respiratory infection, bronchitis, cough TECHNIQUE: Frontal and lateral views of the chest are obtained on 3 images. FINDINGS: There is no focal air space opacity, pleural effusion, or pneumothorax seen. The cardiac silhouette size is within normal limits. The osseous structures are intact. There are prominent kendell g volumes consistent with underlying COPD. Coronary stent is present. There are coronary artery calci fications. The aorta is aneurysmal. Bronchial wall thickening is present. IMPRESSION: Aortic aneurysm. Correlate for bronchitis. Additional findings above.
== END | disposition home or self-care (01) ==
LOC: LABWHC1 10:51
PROVIDERS: ATTEND Internal Medicine
DX: I71.9 Aortic aneurysm of unspecified site, without rupture (principal); J06.9 Acute upper respiratory infection, unspecified
CPT/HCPCS: 36415; 71046; 85025

== ENCOUNTER → 2019-12-05 | Outpatient (CLI) | payer OTHER ==
--- NOTE | 2019-12-05 13:57 | CT ---
EXAMINATION TYPE: CT angio chest DATE OF EXAM: 12/05/2019 COMPARISON: HISTORY: Thoracic aortic aneurysm CT DLP: 773 mGycm Automated exposure control for dose reduction was used. CONTRAST: CTA scan of the thorax is performed without and with IV Contrast, patient injected with 100 ml mL of Isovue 300, pulmonary embolism protocol. MIP images are created and reviewed. 3D reconstructed imag es are created on an independent workstation and reviewed. FINDINGS: LUNGS: The lungs are grossly clear, there is no concerning parenchymal mass or nodule identified. Em physematous changes are present at the lung apices. There is no pleural effusion or pneumothorax seen . The tracheobronchial tree is patent. AORTA: Root of the aorta measures 4.6 cm. Descending aorta 3.8 cm, proximal descending aorta 3.6 cm. MEDIASTINUM: There is satisfactory enhancement of the pulmonary artery and its branches, there is no CT evidence for pulmonary embolism. There are no greater than 1 cm hilar or mediastinal lymph nodes. No pericardial effusion is seen. Coronary artery calcifications are present. OTHER: Patient is post cholecystectomy. Liver shows no mass in its visualized portions. IMPRESSION: AORTIC ANEURYSM IS SIMILAR TO PRIOR EXAM. ROOT OF THE AORTA MEASURING APPROXIMATELY 4.6 CM.
== END | disposition home or self-care (01) ==
LOC: RADCTMAIN 08:51
PROVIDERS: ATTEND Internal Medicine
DX: I71.2 Thoracic aortic aneurysm, without rupture (principal); Z88.5 Allergy status to narcotic agent; Z91.013 Allergy to seafood
CPT/HCPCS: 71275; Q9967

== ENCOUNTER → 2019-12-19 | Outpatient (CLI) | payer OTHER ==
--- NOTE | 2019-12-19 08:37 | US ---
EXAMINATION TYPE: US duplex aorta DATE OF EXAM: 12/19/2019 COMPARISON: CT 12/05/2019 CLINICAL HISTORY: Pulsatile mass, smoker EXAM MEASUREMENTS: Abdominal Aorta: Proximal: 2.8 x 3.0cm Mid: 2.1 x 2.1cm Distal: 1.8 x 1.5cm Bifurcation: Rt = 0.8cm Lt = 0.8cm Normal caliper aorta seen by ultrasound. Recent CT showed dilated aorta more proximal to what US coul d image today. IMPRESSION: 1 borderline abdominal aorta aneurysm at its proximal component.
== END | disposition home or self-care (01) ==
LOC: RADUSWWP 07:33
PROVIDERS: ATTEND Internal Medicine
DX: R22.1 Localized swelling, mass and lump, neck (principal); Z88.5 Allergy status to narcotic agent; Z91.013 Allergy to seafood
CPT/HCPCS: 93979

== ENCOUNTER → 2020-10-09 | Outpatient (CLI) | payer OTHER ==
[2020-10-09 11:01] LABS: Basophils # (A) 0.1 k/uL (0-0.2); Basophils % (A) 1 %; Eosinophils # (A) 0.4 k/uL (0-0.7); Eosinophils % (A) 6 %; HCT 38.6 % (39.0-53.0); HGB 12.6 gm/dL (13.0-17.5); Lymphocytes % (A) 30 %; MCH 29.1 pg (25.0-35.0); MCHC 32.7 g/dL (31.0-37.0); MCV 89.1 fL (80.0-100.0); Mean Platelet Volume 7.7; Monocytes # (A) 0.4 k/uL (0-1.0); Monocytes % (A) 7 %; Neutrophils # (A) 3.6 k/uL (1.3-7.7); Neutrophils % (A) 54 %; Platelet Count 256 k/uL (150-450); RBC 4.33 m/uL (4.30-5.90); RDW 15.2 % (11.5-15.5); WBC 6.7 k/uL (3.8-10.6)
[2020-10-09 12:53] LABS: Erythrocyte Sedimentation Rate 25 mm/hr (0-15)
[2020-10-09 15:19] LABS: % Iron Saturation 13.03 (15.00-50.00); ALT 20 U/L (10-49); AST 18 U/L (14-35); African American GFR (CKD) 105.7 (60.0-200.0); Albumin/Globulin Ratio 1.96 (1.60-3.17); Alkaline Phosphatase 84 U/L (41-126); BUN/Creat Ratio 15.56 Ratio (12.00-20.00); Calcium 9.8 mg/dL (8.7-10.3); Carbon Dioxide 29.1 mmol/L (21.6-31.8); Chloride 104 mmol/L (96-109); Chol/HDL Ratio 3.39; Cholesterol 210 mg/dL (0-200); Ferritin 10.3 ng/mL (22.0-322.0); Globulin 2.3 g/dL (1.6-3.3); Glucose 91 mg/dL (70-110); Iron 52 ug/dL (65-175); LDL Cholesterol,Calculated 126.6 mg/dL (0.0-131.0); Non-African American GFR(CKD) 91.2 (60.0-200.0); Potassium 4.8 mmol/L (3.5-5.5); Prostate Specific Antigen 0.5 ng/mL (0.0-4.5); Sodium 137 mmol/L (135-145); Total Bilirubin 0.5 mg/dL (0.2-1.2); Total Iron Binding Capacity 399 ug/dL (228-460); Total Protein 6.8 g/dL (6.2-8.2)
[2020-10-09 19:57] LABS: C Reactive Protein <0.4 mg/dL (0.0-0.8)
== END | disposition home or self-care (01) ==
LOC: LABWHC1 10:26
PROVIDERS: ATTEND Internal Medicine
DX: J44.9 Chronic obstructive pulmonary disease, unspecified (principal); D64.9 Anemia, unspecified; E78.5 Hyperlipidemia, unspecified; E03.9 Hypothyroidism, unspecified; M19.90 Unspecified osteoarthritis, unspecified site; I25.10 Atherosclerotic heart disease of native coronary artery without angina pectoris; Z95.1 Presence of aortocoronary bypass graft; F32.9 Major depressive disorder, single episode, unspecified
CPT/HCPCS: 36415; 80053; 80061; 82306; 82728; 83540; 83550; 84153; 84439; 84443; 85025; 85652; 86140

== ENCOUNTER → 2020-11-14 | Outpatient (CLI) | payer OTHER ==
--- NOTE | 2020-11-14 18:56 | ECHOF ---
Referral Reason:Z95.5 MEASUREMENTS -------- HEIGHT: 182.9 cm WEIGHT: 98.4 kg BP: RVIDd: 4.0 cm (< 3.3) IVSd: 1.2 cm (0.6 - 1.1) LVIDd: 4.9 cm (3.9 - 5.3) LVPWd: 1.2 cm (0.6 - 1.1) IVSs: 1.6 cm LVIDs: 3.6 cm LVPWs: 1.6 cm LAESV Index (A-L): 24.67 ml/m Ao Diam: 4.3 cm (2.0 - 3.7) AV Cusp: 2.4 cm (1.5 - 2.6) MV EXCURSION: 16.865 mm (> 18.000) MV EF SLOPE: 108 mm/s (70 - 150) MV E Hugo: 0.54 m/s MV DecT: 152 ms MV A Hugo: 0.67 m/s MV E/A Ratio: 0.81 RAP: 5.00 mmHg RVSP: 18.45 mmHg FINDINGS -------- Sinus rhythm. This was a technically difficult study with suboptimal views. The left ventricular size is normal. There is mild concentric left ventricular hypertrophy. Overa ll left ventricular systolic function is low-normal with, an EF between 50 - 55 %. The diastolic fi lling pattern indicates impaired relaxation 7.82. The right ventricle is moderately enlarged. Normal LA size by volume 22+/-6 ml/m2. The right atrial size is normal. 5.0mg of Lumason was utilized for enhancement of images Interatrial and interventricular septum intact. The aortic valve is trileaflet and appears structurally normal. Trace to mild aortic regurgitation. There is no evidence of aortic stenosis. The mitral valve leaflets are mildly thickened. There is trace to mild mitral regurgitation. The tricuspid valve appears structurally normal. Mild tricuspid regurgitation present. There is n o evidence of pulmonary hypertension. The right ventricular systolic pressure, as measured by Doppl er, is 18.45mmHg. There is no pulmonic regurgitation present. The aortic root and ascending aorta are dilated measuring up to 4.5 cm. IVC Not well visulized. There is no pericardial effusion. CONCLUSIONS -------- 1. This was a technically difficult study with suboptimal views. 2. There is mild concentric left ventricular hypertrophy. 3. Overall left ventricular systolic function is low-normal with, an EF between 50 - 55 %. 4. The right ventricle is moderately enlarged. 5. Trace to mild aortic regurgitation. 6. There is trace to mild mitral regurgitation. 7. Mild tricuspid regurgitation present. 8. The aortic root and ascending aorta are dilated measuring up to 4.5 cm. OCCUPATIONAL THERAPY INSTRUCTOR: Sheridan Sierra RDCS
--- NOTE | 2020-11-19 11:05 | P.ARTDOP ---
Arterial Doppler LOWER EXTREMITY ARTERIAL DOPPLER: DATE OF SERVICE: 11/14/2019 Reason for study: Diminished pulses. Doppler waveforms: Multiphasic bilaterally throughout. Pulse volume recording: []. Pressure gradients: None. Ankle-brachial indices: Greater than 1 bilaterally. Toe brachial indices: [] on the right, [] on the left Impression: Normal study.
--- NOTE | 2020-11-26 09:34 | P.ARTDOP ---
Arterial Doppler : Upper extremity arterial Doppler: Date of study: 11/14/2020 Reason for study: Previous CABG. Findings: We see multiphasic Doppler waveforms bilaterally throughout. No segmental or right to left pressure gradients are noted. Impression: Normal study
== END | disposition home or self-care (01) ==
LOC: RADUSWWP 12:52
PROVIDERS: ATTEND Internal Medicine Cardiovascular Disease
DX: I08.3 Combined rheumatic disorders of mitral, aortic and tricuspid valves (principal); R09.89 Other specified symptoms and signs involving the circulatory and respiratory systems; Z95.5 Presence of coronary angioplasty implant and graft
CPT/HCPCS: 93922 ×2; C8929; Q9950; 93306

== ENCOUNTER → 2021-01-13 | Outpatient (CLI) | payer OTHER ==
[2021-01-13 15:21] LABS: Basophils # (A) 0.07 X 10*3/uL (0.00-0.10); Eosinophils % (A) 6.9 %; HCT 39.5 % (39.6-50.0); HGB 12.7 g/dL (13.0-17.0); Lymphocytes # (A) 2.27 X 10*3/uL (0.90-5.00); Lymphocytes % (A) 31.3 %; MCH 29.1 pg (27.0-32.0); MCHC 32.2 g/dL (32.0-37.0); MCV 90.4 fL (80.0-97.0); Mean Platelet Volume 10.3 fL (9.5-12.2); Monocytes # (A) 0.57 X 10*3/uL (0.20-1.00); Monocytes % (A) 7.9 %; Neutrophils # (A) 3.81 X 10*3/uL (1.80-7.70); Neutrophils % (A) 52.5 %; Platelet Count 249 X 10*3/uL (140-440); RBC 4.37 X 10*6/uL (4.40-5.60); RDW 14.6 % (11.5-14.5); WBC 7.25 X 10*3/uL (4.50-10.00)
[2021-01-13 20:39] LABS: Ferritin 33.6 ng/mL (22.0-322.0)
[2021-01-13 20:51] LABS: % Iron Saturation 27.81 (15.00-50.00)
== END | disposition home or self-care (01) ==
LOC: LABWHC1 10:45
PROVIDERS: ATTEND Internal Medicine
DX: D64.9 Anemia, unspecified (principal)
CPT/HCPCS: 36415; 82728; 83540; 83550; 85025

== ENCOUNTER → 2021-04-13 | Outpatient (CLI) | payer OTHER ==
[2021-04-13 11:44] LABS: Basophils # (A) 0.08 X 10*3/uL (0.00-0.10); Eosinophils # (A) 0.65 X 10*3/uL (0.04-0.35); Eosinophils % (A) 8.3 %; HCT 39.9 % (39.6-50.0); HGB 12.8 g/dL (13.0-17.0); Lymphocytes # (A) 1.78 X 10*3/uL (0.90-5.00); Lymphocytes % (A) 22.8 %; MCH 29.3 pg (27.0-32.0); MCHC 32.1 g/dL (32.0-37.0); MCV 91.3 fL (80.0-97.0); Mean Platelet Volume 9.8 fL (9.5-12.2); Monocytes # (A) 0.67 X 10*3/uL (0.20-1.00); Monocytes % (A) 8.6 %; Neutrophils # (A) 4.56 X 10*3/uL (1.80-7.70); Neutrophils % (A) 58.3 %; Platelet Count 277 X 10*3/uL (140-440); RBC 4.37 X 10*6/uL (4.40-5.60); RDW 13.3 % (11.5-14.5); WBC 7.82 X 10*3/uL (4.50-10.00)
[2021-04-13 12:39] LABS: Albumin 4.4 g/dL (3.80-4.90); Albumin/Globulin Ratio 1.76 (1.60-3.17); Calcium 9.5 mg/dL (8.7-10.3); Globulin 2.5 g/dL (1.6-3.3); Non-African American GFR(CKD) 90.6 (60.0-200.0); Potassium 4.7 mmol/L (3.5-5.5); Total Bilirubin 0.5 mg/dL (0.3-1.2); Total Protein 6.9 g/dL (6.2-8.2)
== END | disposition home or self-care (01) ==
LOC: LABWHC1 07:46
PROVIDERS: ATTEND Internal Medicine
DX: I10 Essential (primary) hypertension (principal); R00.1 Bradycardia, unspecified
CPT/HCPCS: 36415; 80053; 85025

== ENCOUNTER → 2022-04-21 | Outpatient (CLI) | payer OTHER ==
--- NOTE | 2022-04-21 17:17 | CA ---
Transthoracic Echo Report Name: Myles Sow Age: 62 Gender: M : 1960 Exam Date: 04/21/2022 11:49 Exam Location: [facility] Ht (in): 71 Wt (lb): 238 Ordering Physician: Chante Chang MD Attending/Referring Phys: Pharmacy Specialist Corinne Kruger RDCS Procedure CPT: Indications: R07.2 Precordial pain Cardiac Hx: Hx of bypass and stents. Technical Quality: Fair Contrast 1: Total Dose (mL): Contrast 2: Total Dose (mL): MEASUREMENTS (Male / Female) Normal Values 2D ECHO LV Diastolic Diameter PLAX 4.7 cm 4.2 - 5.9 / 3.9 - 5.3 cm LV Systolic Diameter PLAX 2.3 cm IVS Diastolic Thickness 1.0 cm 0.6 - 1.0 / 0.6 - 0.9 cm LVPW Diastolic Thickness 1.1 cm 0.6 - 1.0 / 0.6 - 0.9 cm LV Relative Wall Thickness 0.4 LA Volume 39.9 cm??? 18 - 58 / 22 - 52 cm??? M-MODE Aortic Root Diameter MM 4.7 cm LA Systolic Diameter MM 3.1 cm LA Ao Ratio MM 0.7 MV E Point Septal Separation 3.7 cm AV Cusp Separation MM 1.9 cm DOPPLER AV Peak Velocity 87.8 cm/s AV Peak Gradient 3.1 mmHg MV Area PHT 3.5 cm??? MR Peak Velocity 98.2 cm/s MR Peak Gradient 3.9 mmHg Mitral E Point Velocity 53.6 cm/s Mitral A Point Velocity 78.0 cm/s Mitral E to A Ratio 0.7 MV Deceleration Time 214.5 ms MV E' Velocity 8.0 cm/s Mitral E to MV E' Ratio 6.7 TR Peak Velocity 107.7 cm/s TR Peak Gradient 4.6 mmHg Right Ventricular Systolic Press 9.6 mmHg FINDINGS Left Ventricle Left ventricular ejection fraction is estimated at 50-55 %. Left ventricular cavity size normal. Left ventricular wall thickness normal. Abnormal (paradoxical) septal motion consistent with postoperative state. Right Ventricle The right ventricle is normal in size and function. Right Atrium The right atrium is normal in size. Left Atrium The left atrium is normal in size. Mitral Valve Structurally normal mitral valve without significant stenosis or prolapse. There is no mitral regurgitation. Aortic Valve Structurally normal aortic valve without significant sclerosis or stenosis. There is no aortic regurgitation. Tricuspid Valve Structurally normal tricuspid valve without significant stenosis. Pulmonary artery systolic pressure is normal. Pulmonic Valve Structurally normal pulmonic valve without significant stenosis. There is no pulmonic regurgitation. Pericardium Normal pericardium without effusion. Aorta Aortic dilatation measuring 4.7cm Moderate aortic dilatation at the level of the sinuses of valsalva (root). Moderate aortic dilatation at the level of the sinotubular junction. CONCLUSIONS Normal LV systolic function Atypical septal motion aortic aneurysm with moderate dilatated she of the aortic root measuring 4.7 cm Previewed by: Dr. Damien Villela MD (Electronically Signed) Final Date: 21 April 2022 17:16
== END | disposition home or self-care (01) ==
LOC: RADECHMAIN 11:37
PROVIDERS: ATTEND Internal Medicine
DX: R07.2 Precordial pain (principal)
CPT/HCPCS: 93306

== ENCOUNTER → 2022-10-04 | Outpatient (CLI) | payer OTHER ==
[2022-10-04 14:50] LABS: ALT 66 U/L (10-49); AST 37 U/L (14-35); African American GFR (CKD) 104.7 (60.0-200.0); Albumin/Globulin Ratio 1.43 (1.60-3.17); Alkaline Phosphatase 90 U/L (41-126); BUN/Creat Ratio 10.19 Ratio (12.00-20.00); Blood Urea Nitrogen 9.1 mg/dL (9.0-27.0); Calcium 9.1 mg/dL (8.7-10.3); Carbon Dioxide 26.4 mmol/L (20.0-27.5); Chloride 101 mmol/L (96-109); Creatine Kinase 89 U/L (35-257); Globulin 2.8 g/dL (1.6-3.3); Glucose 86 mg/dL (70-110); Non-African American GFR(CKD) 90.4 (60.0-200.0); Phosphorus 3.3 mg/dL (2.4-5.1); Potassium 4.5 mmol/L (3.5-5.5); Sodium 137 mmol/L (135-145); Total Protein 6.7 g/dL (6.2-8.2); Uric Acid 4.6 mg/dL (3.7-8.7)
[2022-10-04 14:58] LABS: Basophils # (A) 0.07 X 10*3/uL (0.00-0.10); Basophils % (A) 0.8 %; Eosinophils # (A) 0.38 X 10*3/uL (0.04-0.35); Eosinophils % (A) 4.6 %; HCT 37.1 % (39.6-50.0); HGB 11.9 g/dL (13.0-17.0); Immature Grans, Automated 0.7 %; Lymphocytes # (A) 2.16 X 10*3/uL (0.90-5.00); Lymphocytes % (A) 25.9 %; MCH 29.6 pg (27.0-32.0); MCHC 32.1 g/dL (32.0-37.0); MCV 92.3 fL (80.0-97.0); Mean Platelet Volume 10.3 fL (9.5-12.2); Monocytes # (A) 0.71 X 10*3/uL (0.20-1.00); Monocytes % (A) 8.5 %; NRBC Per 100 WBC 0 /100 WBCS (0.0-0.0); Neutrophils # (A) 4.96 X 10*3/uL (1.80-7.70); Neutrophils % (A) 59.5 %; Platelet Count 239 X 10*3/uL (140-440); RBC 4.02 X 10*6/uL (4.40-5.60); RDW 13.6 % (11.5-14.5); WBC 8.34 X 10*3/uL (4.50-10.00)
[2022-10-04 15:26] LABS: Chol/HDL Ratio 3.28 Ratio; LDL Cholesterol,Calculated 118.8 mg/dL (0.0-131.0); VLDL Calculation 13.88 mg/dL (5.00-40.00)
[2022-10-04 17:51] LABS: Erythrocyte Sedimentation Rate 22 mm/Hr (0-20)
== END | disposition home or self-care (01) ==
LOC: LABWHC1 08:41
PROVIDERS: ATTEND Internal Medicine
DX: Z01.812 Encounter for preprocedural laboratory examination (principal); D64.9 Anemia, unspecified; N40.0 Benign prostatic hyperplasia without lower urinary tract symptoms; J44.9 Chronic obstructive pulmonary disease, unspecified; I10 Essential (primary) hypertension; E55.9 Vitamin D deficiency, unspecified; M10.9 Gout, unspecified; E78.5 Hyperlipidemia, unspecified; M81.0 Age-related osteoporosis without current pathological fracture; E66.9 Obesity, unspecified; I25.810 Atherosclerosis of coronary artery bypass graft(s) without angina pectoris
CPT/HCPCS: 36415; 80053; 80061; 82306; 82550; 83735; 83970; 84100; 84153; 84443; 84550; 85025; 85652; 86140

== ENCOUNTER 2022-11-21 08:23 | Inpatient (IN) | payer OTHER ==
[2022-11-21] MEDS ORDERED: Alteplase PER PHARMACY Stroke 1 EACH MISC MISCELLANE PRN (08:26)
[2022-11-21 08:28] LABS: Glucose,Whole Blood 102 mg/dL (70-110)
[2022-11-21] MEDS ORDERED: ALTEPLASE BOLUS FOR STROKE 9 MG in EMPTY SYRINGE 1 SYR IV STA (08:31)
[2022-11-21] MEDS ORDERED: ALTEPLASE 81 MG in EMPTY BAG 1 BAG IV STA (08:32)
[2022-11-21] MEDS ORDERED: diphenhydrAMINE 50 MG/ML 1 ML VIAL IVP STA (08:32)
[2022-11-21] MEDS ORDERED: FAMOTIDINE 20 MG/2 ML VIAL IV STA (08:32)
[2022-11-21] MEDS ORDERED: methylPREDNISolone SOD SUCCI 125 MG/2 ML VIAL IV STA (08:32)
--- NOTE | 2022-11-21 08:55 | CT ---
EXAMINATION TYPE: CT brain cspine wo con CT DLP: 1649.8 mGycm, Automated exposure control for dose reduction was used. DATE OF EXAM: 11/21/2022 8:39 AM COMPARISON: 05/26/2015 CLINICAL INDICATION:Male, 62 years old with history of Neuro deficit, acute, stroke suspected; Code a lteplase code stroke TECHNIQUE: Brain: Multiple axial CT images of the brain were obtained without IV contrast. Cspine: Axial CT images from the skull base to the inferior aspect of T2 we obtained without intraven ous contrast. Coronal and sagittal reformatted images were also reviewed. FINDINGS: Brain: Extra-axial spaces: No abnormal extra-axial fluid collections. Ventricular system: Within normal limits Cerebral parenchyma: No acute intraparenchymal hemorrhage or mass effect. The talbert-white junction is well differentiated. Cerebellum: Unremarkable. Mass effect: No evidence of midline shift. Intracranial vasculature: Atherosclerotic calcifications of the intracranial vessels. Soft tissues: Normal. Calvarium/osseous structures: No depressed skull fracture. Paranasal sinuses and mastoid air cells: Moderate paranasal sinus opacification. 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 Cervical spine: Fracture: None. Osseous structures: Multilevel degenerative disc disease changes with endplate spurring and disc oste ophyte complex's. Vertebral alignment: Within normal limits. Spinal canal/Neural Foramina: Disc osteophyte complexes at C5-C6 and C6-C7 with at least mild spinal canal stenosis. No evidence for significant neural foraminal stenosis. Neck soft tissues: Prevertebral soft tissues are within normal limits. Other: The airway is patent. Pulmonary vascular congestion IMPRESSION: 1. No acute intracranial process. 2. No evidence of cervical spine fracture. 3. Moderate multilevel degenerative disc disease. 4. Moderate paranasal sinus disease. 5. Moderate pulmonary vascular congestion correlate serum BNP.
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
[2022-11-21] MEDS ORDERED: niCARdipine 20 MG in SODIUM CHLORIDE 0.9% 192 ML IV SCH (09:00)
[2022-11-21] MEDS ORDERED: SODIUM CHLORIDE 0.9% 1,000 ML IV STA ×3 (09:05→10:06)
[2022-11-21 09:07] LABS: Basophils # (A) 0.1 k/uL (0-0.2); Basophils % (A) 1 %; Eosinophils # (A) 0.3 k/uL (0-0.7); Eosinophils % (A) 5 %; HCT 36.7 % (39.0-53.0); HGB 12.3 gm/dL (13.0-17.5); Lymphocytes # (A) 2.7 k/uL (1.0-4.8); Lymphocytes % (A) 37 %; MCH 29.7 pg (25.0-35.0); MCHC 33.5 g/dL (31.0-37.0); MCV 88.6 fL (80.0-100.0); Mean Platelet Volume 7.4; Monocytes # (A) 0.3 k/uL (0-1.0); Monocytes % (A) 5 %; Neutrophils # (A) 3.6 k/uL (1.3-7.7); Neutrophils % (A) 50 %; Platelet Count 230 k/uL (150-450); RBC 4.14 m/uL (4.30-5.90); RDW 13.5 % (11.5-15.5); WBC 7.3 k/uL (3.8-10.6)
--- NOTE | 2022-11-21 09:11 | CT ---
EXAMINATION TYPE: CT angio head neck CT DLP: 707.1 mGycm, Automated exposure control for dose reduction was used. DATE OF EXAM: 11/21/2022 9:01 AM COMPARISON: CT same day. CLINICAL INDICATION:Male, 62 years old with history of Neuro deficit, acute, stroke suspected, Neuro deficits, code alteplase TECHNIQUE: Axially acquired helical CT angiogram of the head and neck was obtained with contrast. Axi al images are supplemented with 3D reconstructions [facility] criteria used. Contrast used:65 mL of Isovue 370 with IV Contrast, Oral contrast used: None. FINDINGS: CTA HEAD: No evidence of acute intracranial hemorrhage, mass effect, or midline shift. The ventricles, sulci, a nd cisterns are unremarkable. The visualized portions of the internal carotid arteries, middle cerebral arteries, anterior cerebral arteries, and posterior cerebral arteries are patent. The basilar and vertebral arteries are patent. Paranasal sinus disease throughout the ethmoid air cells. CTA NECK: Right Carotid System: The common carotid artery and external carotid artery are patent. The carotid bifurcation demonstrate s no evidence of hemodynamically significant stenosis. The remaining portions of the internal carotid artery demonstrate normal size without significant narrowing. Left Carotid System: The common carotid artery and external carotid artery are patent. The carotid bifurcation demonstrate s no evidence of hemodynamically significant stenosis. The remaining portions of the internal carotid artery demonstrate normal size without significant narrowing. Vertebral arteries are patent without evidence hemodynamically significant stenosis. There is a three-vessel aortic arch. The origins of the great vessels are patent. No evidence of hemo dynamically significant stenosis. Upper thorax: Atherosclerosis of the coronary arteries. IMPRESSION: 1. No evidence of dissection of the cervical internal carotid arteries or vertebral arteries or any e vidence of significant stenosis at the carotid bifurcations. 2. No evidence of intracranial high-grade stenosis or intracranial aneurysm.
[2022-11-21 09:25] LABS: ALT 128 U/L (4-49); AST 67 U/L (17-59); African American GFR (CKD) >90 (>60 ml/min/1.73 sqM); Albumin 3.4 g/dL (3.5-5.0); Alkaline Phosphatase 104 U/L (38-126); Anion Gap 4 mmol/L; Blood Urea Nitrogen 12 mg/dL (9-20); Calcium 8.1 mg/dL (8.4-10.2); Carbon Dioxide 27 mmol/L (22-30); Chloride 104 mmol/L (98-107); Glucose 99 mg/dL (74-99); Non-African American GFR(CKD) >90 (>60 ml/min/1.73 sqM); Potassium 4.3 mmol/L (3.5-5.1); Sodium 135 mmol/L (137-145); Total Bilirubin 0.5 mg/dL (0.2-1.3); Total Protein 6.5 g/dL (6.3-8.2)
[2022-11-21] MEDS ORDERED: ASPIRIN 325 MG TAB PO STA (09:27)
[2022-11-21] MEDS ORDERED: TICAGRELOR 90 MG TAB PO STA (09:27)
[2022-11-21] MEDS ORDERED: SODIUM CHLORIDE 0.9% 50 ML MINI-BAG IV ONE (09:31)
[2022-11-21 09:33] LABS: Partial Thromboplastin Time 22.8 sec (22.0-30.0); Prothrombin Time 10.2 sec (9.0-12.0)
--- NOTE | 2022-11-21 09:39 | XR ---
EXAMINATION TYPE: XR chest 2V DATE OF EXAM: 11/21/2022 9:34 AM COMPARISON: Chest radiographs from 10/15/2019 TECHNIQUE: XR chest 2V Frontal and lateral views of the chest. CLINICAL INDICATION:Male, 62 years old with history of altered mental status; FINDINGS: Lungs/Pleura: There is no evidence of pleural effusion, focal consolidation, or pneumothorax. Pulmonary vascularity: Pulmonary vascular congestion. Heart/mediastinum: Cardiomediastinal silhouette is enlarged and stable. Musculoskeletal: No acute osseous pathology. Midline sternotomy wires are noted. IMPRESSION: Cardiomegaly and mild pulmonary vascular congestion. Correlate with BNP for congestive heart failure.
[2022-11-21] MEDS ORDERED: NITROGLYCERIN SL TABS 0.4 MG TAB SUBLINGUAL PRN (13:46)
[2022-11-21] MEDS ORDERED: ALBUTEROL NEBULIZED 2.5 MG/3 ML INHALATION PRN (13:46)
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
[2022-11-21] MEDS: LEVOTHYROXINE 100 MCG TAB PO SCH (15:53)
[2022-11-21] MEDS: GABAPENTIN 300 MG CAP PO SCH ×2 (15:54→20:07)
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
[2022-11-21 20:04] VITALS: RESP 16
[2022-11-21] MEDS: PANTOPRAZOLE 40 MG TABLET PO SCH (20:06)
[2022-11-21] MEDS: RANOLAZINE 500 MG TAB.ER.12H PO SCH (20:06)
[2022-11-21] MEDS: TICAGRELOR 90 MG TAB PO SCH (20:07)
[2022-11-21] MEDS ORDERED: ATORVASTATIN 40 MG TAB PO SCH (21:00)
[2022-11-21 22:43] LABS: Chol/HDL Ratio 2.69 Ratio; LDL Cholesterol,Calculated 74.9 mg/dL (0.0-131.0); VLDL Calculation 14.38 mg/dL (5.00-40.00)
[2022-11-22 08:17] LABS: HCT 37.3 % (39.0-53.0); HGB 12.3 gm/dL (13.0-17.5); MCH 29.3 pg (25.0-35.0); MCHC 32.9 g/dL (31.0-37.0); MCV 89.1 fL (80.0-100.0); Mean Platelet Volume 8.1; Platelet Count 256 k/uL (150-450); RBC 4.19 m/uL (4.30-5.90); RDW 14.1 % (11.5-15.5); WBC 16.1 k/uL (3.8-10.6)
[2022-11-22 08:34] VITALS: TEMP 97.7
[2022-11-22 08:37] LABS: ALT 105 U/L (4-49); AST 42 U/L (17-59); African American GFR (CKD) >90 (>60 ml/min/1.73 sqM); Albumin 3.7 g/dL (3.5-5.0); Alkaline Phosphatase 85 U/L (38-126); Anion Gap 7 mmol/L; Blood Urea Nitrogen 12 mg/dL (9-20); Calcium 9.1 mg/dL (8.4-10.2); Carbon Dioxide 27 mmol/L (22-30); Chloride 106 mmol/L (98-107); Glucose 108 mg/dL (74-99); Non-African American GFR(CKD) >90 (>60 ml/min/1.73 sqM); Potassium 4.7 mmol/L (3.5-5.1); Sodium 140 mmol/L (137-145); Total Bilirubin 0.8 mg/dL (0.2-1.3); Total Protein 6.9 g/dL (6.3-8.2)
[2022-11-22] MEDS: RANOLAZINE 500 MG TAB.ER.12H PO SCH (08:40)
[2022-11-22] MEDS: TICAGRELOR 90 MG TAB PO SCH (08:41)
[2022-11-22] MEDS: PANTOPRAZOLE 40 MG TABLET PO SCH (08:41)
[2022-11-22] MEDS: LEVOTHYROXINE 100 MCG TAB PO SCH (08:41)
[2022-11-22] MEDS: GABAPENTIN 300 MG CAP PO SCH ×2 (08:41→16:35)
[2022-11-22] MEDS ORDERED: FLUoxetine HCL 20 MG CAP PO SCH (09:00)
[2022-11-22] MEDS ORDERED: ASPIRIN 81 MG PO SCH (09:00)
[2022-11-22] MEDS ORDERED: CHOLECALCIFEROL 25 MCG (1000 IU) TABLET PO SCH (09:00)
[2022-11-22] MEDS ORDERED: METOPROLOL TARTRATE 25 MG TAB PO SCH (09:00)
[2022-11-22] MEDS ORDERED: CYANOCOBALAMIN 500 MCG TAB PO SCH (09:00)
[2022-11-22 11:06] LABS: Chol/HDL Ratio 2.53 Ratio
--- NOTE | 2022-11-22 12:20 | P.PN ---
Subjective Progress Note Date: 11/22/22 I am seeing the patient for the first time during this admission. Please refer to Dr. Cardenas for further details. He continuyes to have some weakness over the right side. Pending MRI Brain. Objective - Vital Signs Vital signs: Vital Signs Temp 97.7 F 11/22/22 08:31 Pulse 54 L 11/22/22 11:49 Resp 16 11/22/22 11:49 BP 127/70 11/22/22 11:49 Pulse Ox 98 11/22/22 11:49 FiO2 Intake & Output 11/21/22 11/22/22 11/22/22 18:59 06:59 18:59 Intake Total 240 Output Total 800 Balance -800 240 Weight 104 kg 102.8 kg Intake: Oral 240 Output: Urine 800 Other: Voiding Method Urinal Urinal # Voids 2 3 1 - Exam GENERAL: The patient is lying in bed and is not in acute distress. NEUROLOGICAL: Higher mental function: The patient is awake, alert, oriented to self, place and time. Patient is following simple commands. No aphasia and no neglect. Cranial nerves: The pupils are round, equal and reactive to light and acc ommodation. Visual shetty are full to confrontation throughout. Extraocular movement is intact no nystagmus is noted. Facial sensation is normal to touch throughout. The facial strength is normal throughout. Hearing is normal bilaterally to hand rub. Tongue is midline and moved [id number] without any difficulty. No dysarthria is noted. Shoulder shrug is normal bilaterally. Motor: The strength is right forearm is 4+, right lower is 4+ to 5-. Otherwise 5 over 5 throughout. Normal tone and bulk. Cerebellum: Normal finger to nose bilaterally. Sensation: Sensation is normal to touch throughout. - Labs CBC & Chem 7: 11/22/22 06:58 11/22/22 06:58 Labs: Abnormal Lab Results - Last 24 Hours (Table) 11/22/22 11/22/22 Range/Units 06:58 06:58 WBC 16.1 H (3.8-10.6) k/uL RBC 4.19 L (4.30-5.90) m/uL Hgb 12.3 L (13.0-17.5) gm/dL Hct 37.3 L (39.0-53.0) % Glucose 108 H (74-99) mg/dL ALT 105 H (4-49) U/L HDL Cholesterol 61.70 H (40.00-60.00) mg/dL Assessment and Plan Assessment: Fall with reported right-sided weakness, right facial droop and garbled speech, concerning for cerebral infarct. There is also amnesia regarding the event and so seizure with Rafael's paralysis must be considered History of reported orthostasis History of hypertension Reported history of cardiovascular disease Plan: MRI of brain has been ordered to further evaluate for cerebral ischemia Pending EEG, to assess for seizure activity Orthostatic vitals: Negative. Is on ASA 81mg daily with addition of Brilinta 90mg 1 tab bid. On Lipitor 40mg qhs for secondary stroke prophylaxis. Pending 2-D echocardiogram. Lipid pane: TG 71, Cholestrole 142, LDL 74 and HDL 52. OT, PT and speech therapy consultations We'll defer the rest of the medical measure the primary team For DVT prophylaxis I start the patient on subcu heparin 5000 units every 8 hours. Upon discharge the patient needs to follow-up with a neurologist in outpatient within 1-2 weeks Time with Patient: Less than 30
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
[2022-11-22] MEDS ORDERED: HEPARIN SODIUM,PORCINE/PF 5,000 UNIT/0.5 ML SYRINGE SQ SCH (16:00)
[2022-11-22 16:35] VITALS: BP 121/72; PULSE 56
--- NOTE | 2022-11-22 18:57 | MR ---
EXAMINATION TYPE: MR brain wo con DATE OF EXAM: 11/22/2022 COMPARISON: None HISTORY: CVA Multiplanar multiecho imaging of the brain performed with no contrast. There is some diffuse cerebral atrophy. There is no mass effect or midline shift. No sign of intracra nial hemorrhage. Diffusion images show no sign of an acute infarct. There are numerous foci of abnormal increased signal on the T2 and FLAIR images at the talbert-white mat ter junction of both cerebral hemispheres. These measure up to 1 cm and total numbers approximately 2 5. Cerebellum is intact. The brainstem is intact. Corpus callosum is intact. Sella turcica is normal. No evidence of orbital mass. There is moderate mucosal thickening in the ethmoid sinuses. IMPRESSION: Cerebral atrophy. Extensive white matter signal changes are peripheral and could relate to microvascu lar ischemia. Demyelinating disease not excluded. Ethmoid sinusitis. No evidence of an acute infarct.
--- NOTE | 2022-11-22 19:24 | P.DS ---
Providers Date of admission: 11/21/22 10:29 Expected date of discharge: 11/22/22 Attending physician: Aries Ahn Consults: 11/21/22 09:56 Consult Physician Routine Consulting Provider: Tahmina Cardenas Consult Reason/Comments: TIA Do you want consulting provider notified?: Already Contacted 11/21/22 13:11 Consult Physician Routine Consulting Provider: Lenin Tomlin Consult Reason/Comments: t wave inversions Do you want consulting provider notified?: Yes Primary care physician: Aries Ahn Dictation on discharge summary Atrial admission 11/21/2022 Date of discharge 11/22/2022 Patient admitted on observation status. On discharge diagnoses #1 patient was symptomatic with right-sided hemiplegia followed by hemiparesis followed by the resolution of his symptoms associated with slurred speech numbness of the right upper and lower lips and confusion disorientation with the underlying probable progression patient admitted for observation #2 TIA was the final diagnosis was negative computed tomography scan #3 MRI was done however radiating still not available and if it is no acute pathology patient will be discharged today and to follow-up with neurology in 2 weeks. #4 the knee Alvarez Fong vascular intervention contacted in the ER and advised with the change of the Plavix to Brilinta #5 the MRI result up to date and communicated with the Dr. Khoa Curiel neurologist and he called the floor the patient can be discharged home tonight. And follow-up with the neurology as outpatient. With the continue the aspirin 81 and Brilinta for 21 days. #6 need for evaluation of the cervical spine with MRI however that will be left to to the's the following urology. He will see the patient as outpatient. Patient had appointment with Dr. Moisés Dias the neurologist. Other diagnoses: #1 coronary artery disease atherosclerotic artery disease status post coronary artery bypass graft 2 and 5 stent. History of hyperlipidemia, hypothyroidism stable hypertension stable. Consultation: #1 Dr. Leida Couch and Estella Gerardo neurologist on-call. Cleared for discharge. #[address] rosario seen by and she refused to his previous echo on 2021 with no changes. On discharge Patient presentation to the emergency room Brought by EMS with the history of falling from sitting position with the underlying questionable orthostatic however mainly could not move his upper and lower extremities on the right side with the numbness and tingling and dizziness in the upper and the lower lips and dysarthria as well as garbled speech [employer]. and down EMS picked him up was very highly suspicious of a stroke and he was confused and disoriented Hospital course The ER physician. Call for also plays and TPA contacted the interventional neurologist and the failure to the history and physical and the ER notes and the patient was sent to for the computed tomography scan as well as he had a computed tomography scan of the head and neck with the underlying degenerative disc disease of the neck the MRI was scheduled as well for the next day however the patient is he returned from the CT he was able to move and able to talk and resolving gradually at that time Dr. Rajan in the ER decided no need for alteplase or TPA and the interventional neurology agreed with him and the they called the neurology on-call and she did do tele vision on the screen evaluated him and subsequently today seen by the neurology Dr. Leida Couch as well. They requested the the neurology MRI which patient had delay on having the MRI until the evening hour and was 6:30 PM and subsequently able to get "with Dr. Couch as he reviewed the MRI with no evidence of the stroke however he recommended to have MRI of cervical spine with the underlying degenerative disc disease which has been present and the computed tomography scan angiogram was negative carotid artery disease. And that advised that continue with the Brilinta and aspirin for 21 days and subsequently dropped his aspirin and also to be seen by neurology as outpatient. Patient clinical finding is stable he had no chest pain no palpitation he has no GI symptoms or symptoms and he subsequently was conscious alert oriented and ambulatory. On discharge physical exam patient conscious alert oriented 3 his and his sister at bedside and he able to communicate and able to stand and walk. And no weakness has been present no walking deviation or falling attacks. Head was normocephalic atraumatic he had left eye prosthesis and he only has the right eye he use the neck was supple no JVD and chest was clear to auscultation and percussion heart was regular sinus rhythm and abdomen was soft positive bowel sounds and extremities no edema. And his vital sign has been stable. Disposition to be discharged today and follow-up as outpatient within the [facility] in [facility] Follow-up this week with Dr. Singh Continue Brilinta prescription was given and continue with the aspirin. His home medications reconciled and continued the same. Patient stable for discharge today from observation status Patient Condition at Discharge: Stable Plan - Discharge Summary Discharge Rx Participant: Yes New Discharge Prescriptions: New Ticagrelor [Brilinta] 90 mg PO BID #60 tab Continue Metoprolol Tartrate [Lopressor] 25 mg PO DAILY Albuterol Inhaler [Ventolin Hfa Inhaler] 2 puff INHALATION RT-Q6H PRN PRN Reason: Shortness Of Breath Gabapentin [Neurontin] 300 mg PO TID Omeprazole [PriLOSEC] 20 mg PO BID Levothyroxine Sodium [Synthroid] 100 mcg PO DAILY Nitroglycerin Sl Tabs [Nitrostat] 0.4 mg SUBLINGUAL Q5M PRN #25 tab PRN Reason: Chest Pain Ranolazine [Ranolazine ER] 1,000 mg PO Q12HR Atorvastatin [Lipitor] 40 mg PO HS Cyanocobalamin [Vitamin B-12] 500 mcg PO DAILY Aspirin EC [Ecotrin Low Dose] 81 mg PO DAILY FLUoxetine HCL [Sarafem] 20 mg PO DAILY Cholecalciferol [Vitamin D3 (25 Mcg = 1000 Iu)] 50 mcg PO DAILY Discontinued Clopidogrel [Plavix] 75 mg PO DAILY #90 tab Discharge Medication List Albuterol Inhaler [Ventolin Hfa Inhaler] 2 puff INHALATION RT-Q6H PRN 10/01/14 [History] Metoprolol Tartrate [Lopressor] 25 mg PO DAILY 10/01/14 [History] Gabapentin [Neurontin] 300 mg PO TID 05/25/15 [History] Omeprazole [PriLOSEC] 20 mg PO BID 07/06/18 [History] Levothyroxine Sodium [Synthroid] 100 mcg PO DAILY 03/15/19 [History] Nitroglycerin Sl Tabs [Nitrostat] 0.4 mg SUBLINGUAL Q5M PRN #25 tab 03/17/19 [Rx] Aspirin EC [Ecotrin Low Dose] 81 mg PO DAILY 11/21/22 [History] Atorvastatin [Lipitor] 40 mg PO HS 11/21/22 [History] Cholecalciferol [Vitamin D3 (25 Mcg = 1000 Iu)] 50 mcg PO DAILY 11/21/22 [H istory] Cyanocobalamin [Vitamin B-12] 500 mcg PO DAILY 11/21/22 [History] FLUoxetine HCL [Sarafem] 20 mg PO DAILY 11/21/22 [History] Ranolazine [Ranolazine ER] 1,000 mg PO Q12HR 11/21/22 [History] Ticagrelor [Brilinta] 90 mg PO BID #60 tab 11/22/22 [Rx] Follow up Appointment(s)/Referral(s): Aries Anh MD [Primary Care Provider] - 1-2 days
--- NOTE | 2022-11-22 20:49 | EEG ---
ELECTROENCEPHALOGRAM REPORT CLINICAL HISTORY: This is a 62-year-old gentleman with a recent fall and amnesia. The video EEG is obtained to evaluate for seizure and epileptiform activity. RELEVANT MEDICATION: The patient is not on any antiepileptic drug. EEG TYPE: A routine 21-channel EEG is performed with video using the 10/20 electrode placement system. DESCRIPTION: Wakefulness is only obtained. During awake state, the posterior-dominant rhythm consists of [id number] voltage of 8 to 8.5 Hz activity, that is well modulated and well sustained. There is no physiological sleep architecture. There is no focal slowing. INTERICTAL AND ICTAL: None. ACTIVATION PROCEDURE: Photic stimulation did not evoke a posterior driving response. There is no abnormality during the photic stimulation. Hyperventilation is not performed. CLINICAL INTERPRETATION: This is a normal routine EEG. There is no focal slowing, epileptiform discharge, or seizure on the EEG. Clinical correlation is recommended. LIZZIE / FREDA: [id number] /
== END 2022-11-22 19:48 | disposition home or self-care (01) | DRG 62 ==
LOC: EC 08:23 → 3SCARD 10:29
PROVIDERS: ADMIT Internal Medicine; ATTEND Internal Medicine
DX: I63.9 Cerebral infarction, unspecified (principal); G81.01 Flaccid hemiplegia affecting right dominant side; J44.9 Chronic obstructive pulmonary disease, unspecified; I11.0 Hypertensive heart disease with heart failure; I50.9 Heart failure, unspecified; I71.9 Aortic aneurysm of unspecified site, without rupture; R47.01 Aphasia; R47.1 Dysarthria and anarthria; R41.3 Other amnesia; R29.713 NIHSS score 13; Z28.310 Unvaccinated for COVID-19; E78.5 Hyperlipidemia, unspecified; I25.10 Atherosclerotic heart disease of native coronary artery without angina pectoris; I44.0 Atrioventricular block, first degree; F32.A Depression, unspecified; F41.9 Anxiety disorder, unspecified; M47.812 Spondylosis without myelopathy or radiculopathy, cervical region; E03.9 Hypothyroidism, unspecified; I25.2 Old myocardial infarction; I83.93 Asymptomatic varicose veins of bilateral lower extremities; K21.9 Gastro-esophageal reflux disease without esophagitis; M19.90 Unspecified osteoarthritis, unspecified site; Z79.82 Long term (current) use of aspirin; Z79.02 Long term (current) use of antithrombotics/antiplatelets; Z79.890 Hormone replacement therapy; Z79.899 Other long term (current) drug therapy; Z95.1 Presence of aortocoronary bypass graft; Z95.5 Presence of coronary angioplasty implant and graft; Z97.0 Presence of artificial eye; Z86.73 Personal history of transient ischemic attack (TIA), and cerebral infarction without residual deficits; Z87.891 Personal history of nicotine dependence; W07.XXXA Fall from chair, initial encounter; Y92.008 Other place in unspecified non-institutional (private) residence as the place of occurrence of the external cause; Z91.041 Radiographic dye allergy status; Z88.5 Allergy status to narcotic agent; Z91.013 Allergy to seafood
CPT/HCPCS: 36415; 70450; 70496; 70498; 70551; 71046; 72125; 80053; 80061; 83880; 84443; 84484; 85025; 85027; 85610; 85730; 93005; 94760; 95816; 96374; 96375; 99285

== ENCOUNTER → 2023-03-11 | Outpatient (CLI) | payer OTHER ==
--- NOTE | 2023-03-11 10:47 | XR ---
EXAMINATION TYPE: XR chest 2V DATE OF EXAM: 03/11/2023 COMPARISON: 11/12/2022 TECHNIQUE: PA and lateral views submitted. HISTORY: Shortness of breath FINDINGS: The lungs are clear and there is no pneumothorax, pleural effusion, or focal pneumonia. Heart size normal and no overt failure. Osseous structures demonstrate hypertrophic and degenerative changes of the spine. Postoperative changes are noted surgical clips in the abdomen. IMPRESSION: 1. No acute process.
[2023-03-11 15:18] LABS: Basophils # (A) 0.08 X 10*3/uL (0.00-0.10); Eosinophils # (A) 0.83 X 10*3/uL (0.04-0.35); Eosinophils % (A) 10.4 %; HCT 38.1 % (39.6-50.0); HGB 12.3 g/dL (13.0-17.0); Immature Grans, Automated 0.5 %; Lymphocytes # (A) 2.55 X 10*3/uL (0.90-5.00); Lymphocytes % (A) 32.1 %; MCH 30.1 pg (27.0-32.0); MCHC 32.3 g/dL (32.0-37.0); MCV 93.2 fL (80.0-97.0); Mean Platelet Volume 10.3 fL (9.5-12.2); Monocytes # (A) 0.81 X 10*3/uL (0.20-1.00); Monocytes % (A) 10.2 %; NRBC Per 100 WBC 0 /100 WBCS (0.0-0.0); Neutrophils # (A) 3.64 X 10*3/uL (1.80-7.70); Neutrophils % (A) 45.8 %; Platelet Count 299 X 10*3/uL (140-440); RBC 4.09 X 10*6/uL (4.40-5.60); RDW 13.7 % (11.5-14.5); WBC 7.95 X 10*3/uL (4.50-10.00)
[2023-03-11 15:29] LABS: African American GFR (CKD) 101.6 (60.0-200.0); Albumin 4.1 g/dL (3.8-4.9); Albumin/Globulin Ratio 1.4 (1.60-3.17); BUN/Creat Ratio 20.46 Ratio (12.00-20.00); Blood Urea Nitrogen 18.8 mg/dL (9.0-27.0); Calcium 9.7 mg/dL (8.7-10.3); Carbon Dioxide 27.2 mmol/L (20.0-27.5); Globulin 2.9 g/dL (1.6-3.3); Non-African American GFR(CKD) 87.7 (60.0-200.0); Potassium 5.3 mmol/L (3.5-5.5); Total Bilirubin 0.9 mg/dL (0.30-1.20)
== END | disposition home or self-care (01) ==
LOC: LABWHC1 10:15
PROVIDERS: ATTEND Internal Medicine
DX: J20.3 Acute bronchitis due to coxsackievirus (principal); J44.9 Chronic obstructive pulmonary disease, unspecified; R42 Dizziness and giddiness; R06.02 Shortness of breath
CPT/HCPCS: 36415; 71046; 80053; 82785; 85025

== ENCOUNTER → 2023-04-15 | Outpatient (CLI) | payer MEDICARE, OTHER ==
[2023-04-15 15:35] LABS: ALT 88 U/L (10-49); AST 51 U/L (14-35); Albumin/Globulin Ratio 1.38 Ratio (1.60-3.17); Alkaline Phosphatase 78 U/L (41-126); Bilirubin, Conjugated <0.20 mg/dL (0.20-0.40); Bilirubin,Unconjugated >0.30 mg/dL (0.20-1.00); Chol/HDL Ratio 2.79 Ratio; Globulin 2.9 d/dL (1.6-3.3); LDL Cholesterol,Calculated 91.1 mg/dL (0.0-131.0); Total Bilirubin 0.5 mg/dL (0.3-1.2); Total Protein 6.9 d/dL (6.2-8.2)
== END | disposition home or self-care (01) ==
LOC: LABWHC1 10:10
PROVIDERS: ATTEND Internal Medicine
DX: E78.5 Hyperlipidemia, unspecified (principal); K75.9 Inflammatory liver disease, unspecified
CPT/HCPCS: 36415; 80061; 80076

== ENCOUNTER → 2023-05-16 | Outpatient (CLI) | payer MEDICARE, OTHER ==
--- NOTE | 2023-05-16 07:50 | US ---
EXAMINATION TYPE: US liver DATE OF EXAM: 05/16/2023 COMPARISON: NONE CLINICAL INDICATION: Male, 63 years old with history of K76.0 FATTY (CHANGE OF) LIVER, NOT ELSEWHERE CLASS; abn labs, no symptoms, cholecystectomy TECHNIQUE: Multiple sonographic images of the right upper quadrant are obtained. FINDINGS: EXAM MEASUREMENTS: Liver Length: 15.9 cm Gallbladder Wall: Surgically absent CBD: 0.8 cm Right Kidney: 10.0 x 3.6 x 6.0 cm HEARING AID CONSULTANT NOTES: Bowel gas limits study Pancreas: not seen due to bowel gas Liver: intercostal images only due to gas , no suspicious mass. Increased echotexture.. Gallbladder: Surgically absent Evidence for sonographic Pryor's sign: no CBD: wnl Right Kidney: wnl IMPRESSION: 1. Hepatic steatosis. 2. No acute process.
== END | disposition home or self-care (01) ==
LOC: RADUSWWP 07:03
PROVIDERS: ATTEND Internal Medicine
DX: K76.0 Fatty (change of) liver, not elsewhere classified (principal); R79.89 Other specified abnormal findings of blood chemistry; Z90.49 Acquired absence of other specified parts of digestive tract
CPT/HCPCS: 76705

== ENCOUNTER → 2023-10-06 | Outpatient (CLI) | payer MEDICARE, OTHER ==
[2023-10-06 15:24] LABS: Basophils # (A) 0.06 X 10*3/uL (0.00-0.10); Basophils % (A) 0.8 %; Eosinophils # (A) 0.48 X 10*3/uL (0.04-0.35); Eosinophils % (A) 6.7 %; HCT 38.7 % (39.6-50.0); HGB 12.7 g/dL (13.0-17.0); Lymphocytes % (A) 34.9 %; MCH 29.7 pg (27.0-32.0); MCHC 32.8 g/dL (32.0-37.0); MCV 90.4 FL (80.0-97.0); Mean Platelet Volume 9.8 FL (9.5-12.2); Monocytes # (A) 0.69 X 10*3/uL (0.20-1.00); Monocytes % (A) 9.6 %; NRBC Per 100 WBC 0 X 10*3/uL (0.00-0.01); Neutrophils # (A) 3.37 X 10*3/uL (1.80-7.70); Neutrophils % (A) 47.2 %; Platelet Count 255 X 10*3/uL (140-440); RBC 4.28 X 10*6/uL (4.40-5.60); RDW 13.3 % (11.5-14.5); WBC 7.16 X 10*3/uL (4.50-10.00)
[2023-10-06 15:48] LABS: % Iron Saturation 25.68 (15.00-50.00); ALT 112 U/L (10-49); AST 63 U/L (14-35); Albumin 4.2 g/dL (3.8-4.9); Albumin/Globulin Ratio 1.35 Ratio (1.60-3.17); Alkaline Phosphatase 77 U/L (41-126); BUN/Creat Ratio 18.11 Ratio (12.00-20.00); Blood Urea Nitrogen 16.3 mg/dL (9.0-27.0); C Reactive Protein <0.30 mg/dL (0.00-0.80); Calcium 9.3 mg/dL (8.7-10.3); Carbon Dioxide 26.7 mmol/L (21.6-31.8); Chloride 102 mmol/L (96-109); Chol/HDL Ratio 3.08 Ratio; Creatine Kinase 125 U/L (35-257); Ferritin 41.8 ng/mL (22.0-322.0); Globulin 3.1 g/dL (1.6-3.3); Glucose 82 mg/dL (70-110); Iron 114 UG/DL (65-175); Phosphorus 3.5 mg/dL (2.4-5.1); Potassium 4.5 mmol/L (3.5-5.5); Prostate Specific Antigen 0.84 ng/mL (0.000-4.500); Sodium 139 mmol/L (135-145); T4, Free (Free Thyroxine) 1.06 ng/dL (0.80-1.80); Total Bilirubin 0.8 mg/dL (0.3-1.2); Total Iron Binding Capacity 444 UG/DL (228-460); Total Protein 7.3 g/dL (6.2-8.2); Uric Acid 4.1 mg/dL (3.7-8.7)
[2023-10-06 16:45] LABS: Erythrocyte Sedimentation Rate 12 mm/Hr (0-20)
== END | disposition home or self-care (01) ==
LOC: LABWHC1 11:26
PROVIDERS: ATTEND Internal Medicine
DX: Z00.00 Encounter for general adult medical examination without abnormal findings (principal); I12.9 Hypertensive chronic kidney disease with stage 1 through stage 4 chronic kidney disease, or unspecified chronic kidney disease; N18.30 Chronic kidney disease, stage 3 unspecified; I25.10 Atherosclerotic heart disease of native coronary artery without angina pectoris; D63.1 Anemia in chronic kidney disease; E78.5 Hyperlipidemia, unspecified; E55.9 Vitamin D deficiency, unspecified; N40.0 Benign prostatic hyperplasia without lower urinary tract symptoms; M10.9 Gout, unspecified; E03.9 Hypothyroidism, unspecified
CPT/HCPCS: 36415; 80053; 80061; 82306; 82550; 82728; 83540; 83550; 83735; 84100; 84153; 84439; 84443; 84550; 85025; 85652; 86140

== ENCOUNTER → 2024-02-07 | Outpatient (CLI) | payer MEDICARE, OTHER ==
[2024-02-07 16:28] LABS: Albumin/Globulin Ratio 1.33 Ratio (1.60-3.17); Bilirubin, Conjugated 0.21 mg/dL (0.20-0.40); Bilirubin,Unconjugated 0.39 mg/dL (0.20-1.00); T4, Free (Free Thyroxine) 1.52 ng/dL (0.80-1.80); Total Bilirubin 0.6 mg/dL (0.3-1.2)
== END | disposition home or self-care (01) ==
LOC: LABWHC1 08:16
PROVIDERS: ATTEND Internal Medicine
DX: E87.8 Other disorders of electrolyte and fluid balance, not elsewhere classified (principal); K75.9 Inflammatory liver disease, unspecified; E03.9 Hypothyroidism, unspecified; R74.8 Abnormal levels of other serum enzymes
CPT/HCPCS: 36415; 80076; 82306; 84439; 84443; 86376; 86800

== ENCOUNTER → 2024-03-27 | Outpatient (CLI) | payer MEDICARE, OTHER ==
[2024-03-27 15:44] LABS: ALT 140 U/L (10-49); AST 73 U/L (14-35); Albumin 4.2 g/dL (3.8-4.9); Albumin/Globulin Ratio 1.31 Ratio (1.60-3.17); Alkaline Phosphatase 105 U/L (41-126); Bilirubin, Conjugated <0.20 mg/dL (0.20-0.40); Bilirubin,Unconjugated >0.30 mg/dL (0.20-1.00); Globulin 3.2 g/dL (1.6-3.3); T4, Free (Free Thyroxine) 1.47 ng/dL (0.80-1.80); Total Bilirubin 0.5 mg/dL (0.3-1.2); Total Protein 7.4 g/dL (6.2-8.2)
== END | disposition home or self-care (01) ==
LOC: LABWHC1 09:34
PROVIDERS: ATTEND Internal Medicine
DX: K75.9 Inflammatory liver disease, unspecified (principal); E03.9 Hypothyroidism, unspecified
CPT/HCPCS: 36415; 80076; 84439; 84443; 86376; 86800

== ENCOUNTER → 2024-06-06 | Outpatient (CLI) | payer MEDICARE, OTHER | END | disposition home or self-care (01) | LOC: LABWHC1 11:18 | PROVIDERS: ATTEND Internal Medicine | DX: E03.9 Hypothyroidism, unspecified (principal) | CPT/HCPCS: 36415; 84439; 84443; 84481 ==

== ENCOUNTER → 2024-07-02 | Outpatient (CLI) | payer MEDICARE, OTHER ==
[2024-07-02 15:20] LABS: Basophils # (A) 0.08 X 10*3/uL (0.00-0.10); Eosinophils # (A) 0.55 X 10*3/uL (0.04-0.35); Eosinophils % (A) 7.1 %; HCT 37.4 % (39.6-50.0); HGB 12.4 g/dL (13.0-17.0); Lymphocytes # (A) 2.26 X 10*3/uL (0.90-5.00); MCH 30.6 pg (27.0-32.0); MCHC 33.2 g/dL (32.0-37.0); MCV 92.3 FL (80.0-97.0); Mean Platelet Volume 9.9 FL (9.5-12.2); Monocytes # (A) 0.65 X 10*3/uL (0.20-1.00); Monocytes % (A) 8.3 %; NRBC Per 100 WBC 0 X 10*3/uL (0.00-0.01); Platelet Count 264 X 10*3/uL (140-440); RBC 4.05 X 10*6/uL (4.40-5.60); RDW 13.7 % (11.5-14.5); WBC 7.79 X 10*3/uL (4.50-10.00)
[2024-07-02 15:49] LABS: ALT 138 U/L (10-49); AST 72 U/L (14-35); Albumin 4.1 g/dL (3.8-4.9); Albumin/Globulin Ratio 1.32 Ratio (1.60-3.17); Alkaline Phosphatase 93 U/L (41-126); BUN/Creat Ratio 14.22 Ratio (12.00-20.00); Blood Urea Nitrogen 12.8 mg/dL (9.0-27.0); Calcium 9.7 mg/dL (8.7-10.3); Carbon Dioxide 24.7 mmol/L (21.6-31.8); Chloride 103 mmol/L (96-109); Globulin 3.1 g/dL (1.6-3.3); Glucose 95 mg/dL (70-110); Potassium 4.8 mmol/L (3.5-5.5); Sodium 139 mmol/L (135-145); Total Bilirubin 0.6 mg/dL (0.3-1.2); Total Protein 7.2 g/dL (6.2-8.2)
[2024-07-02 19:16] LABS: INR 0.96 sec (0.93-1.11); Prothrombin Time 10.4 sec (9.9-11.9)
== END | disposition home or self-care (01) ==
LOC: LABWHC1 09:17
PROVIDERS: ATTEND Internal Medicine Interventional Cardiology
DX: I25.10 Atherosclerotic heart disease of native coronary artery without angina pectoris (principal)
CPT/HCPCS: 36415; 80053; 85025; 85610

== ENCOUNTER → 2024-08-01 | Outpatient (CLI) | payer MEDICARE, OTHER ==
[2024-08-01 16:14] LABS: BUN/Creat Ratio 17.44 Ratio (12.00-20.00); Blood Urea Nitrogen 15.7 mg/dL (9.0-27.0); Calcium 9.2 mg/dL (8.7-10.3); Carbon Dioxide 27.2 mmol/L (21.6-31.8); Chloride 102 mmol/L (96-109); Glucose 82 mg/dL (70-110); Potassium 4.9 mmol/L (3.5-5.5); Sodium 139 mmol/L (135-145); T4, Free (Free Thyroxine) 1.27 ng/dL (0.80-1.80)
== END | disposition home or self-care (01) ==
LOC: LABWHC1 10:15
PROVIDERS: ATTEND Internal Medicine
CPT/HCPCS: 36415; 80048; 84439; 84443; 84481; 86376; 86800

== ENCOUNTER → 2024-10-03 | Outpatient (CLI) | payer MEDICARE, OTHER ==
[2024-10-03 15:54] LABS: Basophils # (A) 0.07 X 10*3/uL (0.00-0.10); Basophils % (A) 1.2 %; Eosinophils # (A) 0.35 X 10*3/uL (0.04-0.35); Eosinophils % (A) 5.9 %; HCT 37.1 % (39.6-50.0); HGB 11.9 g/dL (13.0-17.0); Lymphocytes # (A) 1.79 X 10*3/uL (0.90-5.00); Lymphocytes % (A) 30.1 %; MCHC 32.1 g/dL (32.0-37.0); MCV 90.5 FL (80.0-97.0); Mean Platelet Volume 10.4 FL (9.5-12.2); Monocytes # (A) 0.64 X 10*3/uL (0.20-1.00); Monocytes % (A) 10.8 %; NRBC Per 100 WBC 0 X 10*3/uL (0.00-0.01); Neutrophils # (A) 3.08 X 10*3/uL (1.80-7.70); Neutrophils % (A) 51.8 %; Platelet Count 234 X 10*3/uL (140-440); RDW 13.3 % (11.5-14.5); WBC 5.94 X 10*3/uL (4.50-10.00)
[2024-10-03 16:15] LABS: Erythrocyte Sedimentation Rate 32 mm/Hr (0-20)
[2024-10-03 16:33] LABS: ALT 207 U/L (10-49); AST 122 U/L (14-35); Albumin 3.9 g/dL (3.8-4.9); Albumin/Globulin Ratio 1.08 Ratio (1.60-3.17); Alkaline Phosphatase 109 U/L (41-126); BUN/Creat Ratio 14.62 Ratio (12.00-20.00); Blood Urea Nitrogen 11.7 mg/dL (9.0-27.0); C Reactive Protein <0.30 mg/dL (0.00-0.80); Calcium 9.3 mg/dL (8.7-10.3); Carbon Dioxide 25.8 mmol/L (21.6-31.8); Chloride 105 mmol/L (96-109); Chol/HDL Ratio 3.54 Ratio; Creatine Kinase 31 U/L (35-257); Ferritin 39.1 ng/mL (22.0-322.0); Globulin 3.6 g/dL (1.6-3.3); Glucose 93 mg/dL (70-110); Iron 103 UG/DL (65-175); LDL Cholesterol,Calculated 97.2 mg/dL (0.0-131.0); Magnesium 1.9 mg/dL (1.5-2.4); Potassium 4.6 mmol/L (3.5-5.5); Prostate Specific Antigen 0.66 ng/mL (0.000-4.500); Sodium 140 mmol/L (135-145); T4, Free (Free Thyroxine) 1.42 ng/dL (0.80-1.80); Total Bilirubin 0.8 mg/dL (0.3-1.2); Total Iron Binding Capacity 479 UG/DL (228-460); Total Protein 7.5 g/dL (6.2-8.2); Uric Acid 4.8 mg/dL (3.7-8.7)
== END | disposition home or self-care (01) ==
LOC: LABWHC1 09:19
PROVIDERS: ATTEND Internal Medicine
DX: Z00.00 Encounter for general adult medical examination without abnormal findings (principal); D64.9 Anemia, unspecified; N40.0 Benign prostatic hyperplasia without lower urinary tract symptoms; J44.9 Chronic obstructive pulmonary disease, unspecified; I10 Essential (primary) hypertension; E87.8 Other disorders of electrolyte and fluid balance, not elsewhere classified; E78.5 Hyperlipidemia, unspecified; E03.9 Hypothyroidism, unspecified; E66.9 Obesity, unspecified; R80.9 Proteinuria, unspecified; E55.9 Vitamin D deficiency, unspecified; M10.9 Gout, unspecified
CPT/HCPCS: 36415; 80053; 80061; 82306; 82550; 82728; 83540; 83550; 83735; 84100; 84153; 84439; 84443; 84550; 85025; 85652; 86140

== ENCOUNTER → 2025-02-07 | Outpatient (CLI) | payer MEDICARE, OTHER ==
[2025-02-07 16:01] LABS: ALT 118 U/L (10-49); AST 69 U/L (14-35); Albumin 3.9 g/dL (3.8-4.9); Albumin/Globulin Ratio 1.15 Ratio (1.60-3.17); Alkaline Phosphatase 113 U/L (41-126); Bilirubin, Conjugated 0.24 mg/dL (0.20-0.40); Bilirubin,Unconjugated 0.26 mg/dL (0.20-1.00); Globulin 3.4 g/dL (1.6-3.3); Rheumatoid Factor, Qnt <15 IU/mL (0-15); T4, Free (Free Thyroxine) 1.14 ng/dL (0.80-1.80); Total Bilirubin 0.5 mg/dL (0.3-1.2); Total Protein 7.3 g/dL (6.2-8.2)
[2025-02-07 16:35] LABS: DNA Double-Stranded Indetermin (Negative)
[2025-02-07 17:10] LABS: Protein, Total 7.5 g/dL (6.2-8.2)
[2025-02-07 19:47] LABS: Cyclic Citrull Pep IgG Unit <1.5 U/mL (<=3.9); Cyclic Citrullinated Pep IgG Negative
[2025-02-08 15:03] LABS: C-ANCA <1:20 Titer (<1:20)
[2025-02-08 18:48] LABS: ANA Pattern Homogenous; ANA Titer 1:>2560
== END | disposition home or self-care (01) ==
LOC: LABWHC1 09:40
PROVIDERS: ATTEND Internal Medicine
DX: D64.9 Anemia, unspecified (principal); K76.0 Fatty (change of) liver, not elsewhere classified; D89.9 Disorder involving the immune mechanism, unspecified
CPT/HCPCS: 36415; 80076; 82306; 84165; 84439; 84443; 85652; 86038; 86039; 86140; 86160; 86162; 86200; 86225; 86255; 86334; 86335; 86376; 86431; 86800

== ENCOUNTER → 2025-02-11 | Outpatient (CLI) | payer MEDICARE, OTHER ==
--- NOTE | 2025-02-11 11:52 | XR ---
EXAMINATION TYPE: XR lumbosacral spine min 4V DATE OF EXAM: 02/11/2025 11:47 AM INDICATION: Patient age:Male; 64 years old; Reason for study: R53.1 weakness M25.559 Pain bilat hips; PHH. pain COMPARISON: Lumbosacral spine radiographs 04/11/2017 TECHNIQUE: Frontal, lateral , bilateral oblique and coned in L5-S1 lateral views of the spine. FINDINGS: There are 5 lumbar type vertebral bodies identified. No evidence of any acute osseous patho logy. No evidence of loss of vertebral body height is seen. Similar grade 1 retrolisthesis of L2 on L3. Multilevel disc space narrowing with endplate sclerosis and anterior osteophytosis. Most pronounc ed at L5-S1. Cholecystectomy clips in the right upper quadrant. Atherosclerotic calcification of the aorta. IMPRESSION: 1. No acute process. 2. Similar multilevel degenerative disc disease from prior radiograph. Most prominent at L5-S1 with moderate to severe disease. [facility], , 02/11/2025 11:50 AM
--- NOTE | 2025-02-11 11:53 | XR ---
EXAMINATION TYPE: XR Hip Bilateral Complete DATE OF EXAM: 02/11/2025 11:47 AM INDICATION: Patient age:Male; 64 years old; Reason for study: R53.1 weakness M25.559 Pain bilat hips; PHH. pain COMPARISON: Bilateral hip radiographs 04/11/2017 TECHNIQUE: Both hips were examined in the frontal and lateral projections . FINDINGS: No evidence of any acute osseous pathology, joint dislocation, or soft tissue swelling. No significant joint space narrowing or osteophyte formation of both hips. IMPRESSION: 1. No acute osseous pathology. 2. No significant osteoarthritic changes of the hips. [facility], , 02/11/2025 11:51 AM
== END | disposition home or self-care (01) ==
LOC: LABWHC1 10:55
PROVIDERS: ATTEND Internal Medicine
DX: M51.379 Other intervertebral disc degeneration, lumbosacral region without mention of lumbar back pain or lower extremity pain (principal); M81.0 Age-related osteoporosis without current pathological fracture; R53.1 Weakness; M25.559 Pain in unspecified hip
CPT/HCPCS: 36415; 72110; 73521; 82550

== ENCOUNTER → 2025-02-13 | Outpatient (CLI) | payer MEDICARE, OTHER ==
--- NOTE | 2025-02-13 22:15 | CTL ---
EXAMINATION TYPE: CT Low Dose Lung DATE OF EXAM: 02/13/2025 6:51 AM COMPARISON: None. SCREENING VISIT: Initial CT DIAGNOSTIC QUALITY: Satisfactory CLINICAL INDICATION: Male, 64 years old with history of Z12.2 Z87.891, Personal history of nicotine d ependence (former smoker), Lung cancer screening, History of tobacco use. TECHNIQUE: Low dose computed tomography scan was performed through the chest at 1 mm thick sections a nd reconstructed images in the coronal plane at 1 mm thick sections. Contrast used: mL of , (none if empty) Oral contrast used: (none if empty) CT DLP: 143.60 mGycm, Automated exposure control for dose reduction was used. CT CTDI: 3.90 mGy, Automated exposure control for dose reduction was used. FINDINGS: LUNG NODULES: None. LUNGS: COPD: Severity: None Fibrosis: Severity: None Lymph nodes: There are couple of prominent lymph nodes in the pretracheal space measuring 1.1 and 1.3 cm. Additional shotty lymphadenopathy is present. Other findings: None RIGHT PLEURAL SPACE: Effusion: None Calcification: None Thickening: None Pneumothorax: None LEFT PLEURAL SPACE: Effusion: None Calcification: None Thickening: None Pneumothorax: None HEART: Other: Ascending thoracic aorta at the level the main pulmonary artery measures 4.0 cm. The main pul monary artery at the bifurcation measures 2.7 cm. Heart Size: Normal Coronary calcification: Severe coronary artery calcifications present. Pericardial effusion: None OTHER FINDINGS: Upper abdomen: Normal Bony thorax: Normal Supraclavicular region: Normal IMPRESSION: 1. No suspicious changes for primary or metastatic neoplasm. 2. Ascending thoracic aortic aneurysm 4.[address] CHEST RECOMMENDATION: Follow-up low-dose CT chest one year CT LUNG RAD: Lung-Rad 2 Benign Appearance or Behavior. S modifier 4 cm aneurysm [facility], , 02/13/2025 10:12 PM
== END | disposition home or self-care (01) ==
LOC: RADCTMAIN 06:21
PROVIDERS: ATTEND Internal Medicine
DX: Z12.2 Encounter for screening for malignant neoplasm of respiratory organs (principal); I71.21 Aneurysm of the ascending aorta, without rupture; Z87.891 Personal history of nicotine dependence
CPT/HCPCS: 71271

== ENCOUNTER → 2025-05-02 | Outpatient (CLI) | payer MEDICARE, OTHER ==
--- NOTE | 2025-05-02 13:29 | XR ---
EXAMINATION TYPE: XR lumbosacral spine min 4V, XR thoracic spine complete DATE OF EXAM: 05/02/2025 1:13 PM INDICATION: Patient age:Male; 65 years old; Reason for study: M54.50 SEVERE LUMBAR PAIN M51.36 DDD THORACIC; PHH. pain COMPARISON: Lumbosacral spine radiograph 02/11/2025, 04/11/2017, thoracic spine radiograph 04/11/2017 TECHNIQUE: Frontal, lateral , bilateral oblique and coned in L5-S1 lateral views of the lumbar spine. Frontal, lateral, swimmer's views of the thoracic spine were obtained. FINDINGS: There are 5 lumbar type vertebral bodies identified. No evidence of any acute osseous patho logy. No evidence of loss of vertebral body height is seen. Similar minimal grade 1 retrolisthesis o f L2 on L3. Multilevel disc space narrowing with endplate sclerosis of the visualized spine. Most pro nounced at L5-S1. Sternotomy wires demonstrated. Cholecystectomy clips in the right upper quadrant. A therosclerotic calcification of the aorta. IMPRESSION: 1. No acute process. 2. Mild multilevel degenerative disc disease of the thoracolumbar spine. 3. Moderate multilevel degenerative disease of the visualized cervical spine. [facility], , 05/02/2025 1:27 PM
== END | disposition home or self-care (01) ==
LOC: RADXRMAIN 12:10
PROVIDERS: ATTEND Internal Medicine
DX: M51.35 Other intervertebral disc degeneration, thoracolumbar region (principal); M50.30 Other cervical disc degeneration, unspecified cervical region
CPT/HCPCS: 72072; 72110